=== PATIENT | male | born 1960 | race Caucasian/White ===

== ENCOUNTER 2024-08-03 09:37 | Emergency (ER) | payer OTHER, SELFPAY ==
[2024-08-03 09:51] VITALS: BP 139/85; PULSE 76; RESP 20; TEMP 36.6; O2SAT 98; BMI 28.1
--- NOTE | 2024-08-03 09:56 | DI.US.S_ITS ---
PROCEDURE: US SCROTUM INDICATIONS: LEFT GROIN PAIN TECHNIQUE: Real-time scanning was performed of the scrotum and testicles, with image documentation. Color and pulse Doppler interrogation was performed of both testicles. COMPARISON: None. FINDINGS: Right: Testicle is normal in size at 4.3 x 1.3 x 2.4 cm, and homogenous in echotexture. Epididymis is normal in overall size and morphology. No hydrocele or varicoceles. Overlying scrotal skin is normal in thickness. Left: Testicle is normal in size at 4.9 x 2 x 3.1 cm, and homogeneous in echotexture. Epididymis is normal in overall size and morphology. No hydrocele or varicoceles. Overlying scrotal skin is normal in thickness. Negative for left groin/inguinal hernia. Doppler: Color and pulse Doppler demonstrate normal and symmetric arterial flow in both testicles. IMPRESSION: Negative for left groin/inguinal hernia. 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 No acute testicular abnormality is seen. Dictated by: Des Gaines M.D. on 08/03/2024 at 10:09 Approved by: Des Gaines M.D. on 08/03/2024 at 10:11
--- NOTE | 2024-08-03 09:59 | PC.NURSE ---
Left sided groin pain starting at 8pm last night. Pt states pain radiates to testicles. Pt has not noticed any discoloration or redness (states he has not looked). Pt denies lower back pain, urinary frequency or urgency. Pt denies issues with peeing (i.e., burning or difficulty starting flow).
[2024-08-03 10:03] LABS: Appearance Urine UA CLEAR; Bilirubin Urine UA NEGATIVE (NEGATIVE); Color Urine UA YELLOW; Glucose Urine UA NEGATIVE (Negative); Ketones Urine UA NEGATIVE (NEGATIVE); Leukocyte Esterase Urine UA NEGATIVE (NEGATIVE); Nitrite Urine UA NEGATIVE (Negative); Occult Blood Urine UA NEGATIVE (Negative); Protein Urine UA NEGATIVE (Negative); Urobilinogen Urine UA 0.2 E.U./dL (0.2); pH Urine UA 7.5 (4.5-8.0)
[2024-08-03 10:11] LABS: Bacteria Urine None Seen; Culture Indicated Urine Cult Not Indicated; RBC Urine None Seen (0-5/HPF); Squamous Epithelial Cell Urine 0-1 /HPF (0-5/HPF); Urine Volume 10mL (spun); WBC Urine 0-1/HPF (0-5/HPF)
--- NOTE | 2024-08-03 10:49 | ED.MALEGU ---
HPI - Male Genitourinary General Chief complaint: Urogenital-Male Stated complaint: ABD pain/groin sharp Time Seen by Provider: 08/03/24 10:49 Source: patient, RN notes reviewed and old records reviewed Mode of arrival: Ambulatory Limitations: no limitations History of Present Illness HPI Narrative: 64-year-old male history of atrial fibrillation on DOAC with prior bilateral inguinal hernia surgery with a complaint of left-sided groin pain radiating to the left testicle describes it as sharp, sudden onset last night. Patient states started last night sort of abruptly sharp pain in the left lower inguinal region and radiates down towards the testicle. Patient states it does go up into his abdomen a little bit. He denies any back or flank pain. No fevers or chills. No nausea or vomiting. States he was had normal bowel movements. No dysuria urgency or frequency. Has not had similar symptoms in the past. Notes he had a hernia repair about 10 years ago. Patient states he had some Tylenol last night has not had anything for pain today. Notes he takes daily medication for atrial fibrillation, anticoagulant does not recall the name but is a DOAC, statin,. Patient states bilateral inguinal hernia repair. Denies any drug allergies. No regular tobacco. Related Data Previous Rx's Medication Instructions Recorded amoxicillin 875 mg-potassium 1 tab PO BID #20 tabs 08/03/24 clavulanate 125 mg tablet amoxicillin 875 mg-potassium 1 tab PO BID #20 tabs 08/03/24 clavulanate 125 mg tablet tramadol 50 mg tablet 50 mg PO Q6H PRN pain #10 tabs 08/03/24 Allergies Allergy/AdvReac Type Severity Reaction Status Date / Time No Known Drug Allergies Allergy Verified 08/03/24 11:18 Review of Systems Review of Systems ROS Unobtainable: All systems reviewed & are unremarkable except as noted in HPI and below Patient History Social History Smoking Status: Never smoker Smoking Status: Never smoker Exam Narrative Exam Narrative: GENERAL: Alert and oriented x three, mild distress HEENT: Head normocephalic, atraumatic, EOMI, pupils reactive, face symmetric, moist mucous membranes NECK: Supple, full range of motion CARDIOVASCULAR: Regular rate and rhythm without murmurs, rubs or gallops. RESPIRATORY: Breath sounds equal bilaterally, no wheezes rales or rhonchi. ABDOMEN: Soft, positive for left lower quadrant tenderness.. Normoactive bowel sounds all 4 quadrants. No guarding, positive for rebound. No rigidity, no mass, patient has a little bit of fullness in the left inguinal region but no clearly palpable hernia. I am not able to palpate a clear defect. He was nontender in the left scrotum. : normal external examination, no penile discharge or lesions, testicles non-tender, cremasteric reflex intact. EXTREMITIES: Normal range of motion, no clubbing or edema. Neurovascularly intact NEUROLOGICAL: Cranial nerves II through XII grossly intact. Moving all extremities SKIN: Warm, dry, no petechiae, no rashes or lesions. Initial Vital Signs Initial Vital Signs: Vital Signs Temperature 98 F 08/03/24 09:51 Pulse Rate 76 08/03/24 09:51 Respiratory Rate 20 08/03/24 09:51 Blood Pressure 139/85 08/03/24 09:51 Pulse Oximetry 98 08/03/24 09:51 Oxygen Delivery Method Room Air 08/03/24 09:51 Course Orders Ordered: ED Orders 08/03/24 09:56 US scrotum Stat 08/03/24 09:57 Urinalysis and Microscopic Stat 08/03/24 11:04 CBC Auto Diff [Complete Blood Count AUTO DIFF] Stat CMP [Comprehensive Metabolic Panel] Stat Lipase Stat 08/03/24 11:05 CT abdomen pelvis w con Stat Discontinued Medications Ketorolac Tromethamine (Ketorolac 30 Mg/Ml Vial) 15 mg IV NOW ONE Stop: 08/03/24 11:06 Last Admin: 08/03/24 11:18 Dose: 15 mg Documented By: GIULIA Vital Signs Vital signs: Vital Signs - 8 hr 08/03/24 09:51 08/03/24 12:14 Temperature 98 F 99.3 F Pulse Rate 76 87 Respiratory Rate 20 16 Blood Pressure 139/85 129/63 Pulse Oximetry 98 96 Oxygen Delivery Method Room Air Room Air MDM - Male Genitourinary Lab Data 08/03/24 11:04 08/03/24 11:04 Labs: Lab Results 08/03/24 08/03/24 Range/Units 09:57 11:04 WBC 11.8 H (4.5-11.0) X10^3/uL RBC 5.04 (4.5-5.9) X10^6/uL Hgb 14.7 (13.5-17.5) g/dL Hct 42.2 (41-53) % MCV 83.7 (80-100) fL MCH 29.1 (26-34) PG MCHC 34.7 (30-36) % RDW 14.1 (11.6-14.8) % Plt Count 212 (150-400) X10^3/uL Neut % (Auto) 78.3 H (50-75) % Lymph % (Auto) 13.1 L (25-40) % [place] % (Auto) 7.7 (3-14) % Eos % (Auto) 0.7 L (2-4) % Baso % (Auto) 0.2 (0-2) % Neut # (Auto) 9200 H (5058-5599) /uL Lymph # (Auto) 1500 (2636-1801) /uL [place] # (Auto) 900 (0-900) /uL Eos # (Auto) 100 (0-450) /uL Baso # (Auto) 0 (0-100) /uL Sodium 139 (137-145) mmol/L Potassium 3.4 (3.4-5.1) mmol/L Chloride 102 (98-107) mmol/L Carbon Dioxide 28 (22-32) mmol/L BUN 14 (9-20) mg/dL Creatinine 0.95 (0.66-1.25) mg/dL Estimated GFR > 60 (>60) mL/min BUN/Creatinine Ratio 14.7 (6-22) Glucose 107 H (70-99) mg/dL Calcium 9.3 (8.4-10.2) mg/dL Total Bilirubin 1.0 (0.2-1.3) mg/dL AST 31 (17-59) IU/L ALT 36 (<50) IU/L Alkaline Phosphatase 89 (38-126) U/L Total Protein 7.2 (6.3-8.2) g/dL Albumin 4.6 (3.5-5.0) g/dL Globulin 2.6 (1.7-4.1) g/dL Albumin/Globulin Ratio 1.8 (1.0-2.8) Lipase 99 (23-300) U/L Urine Color Yellow Urine Appearance Clear Urine pH 7.5 (4.5-8.0) Ur Specific [place] 1.010 (1.000-1.035) Urine Protein Negative (Negative) Urine Glucose (UA) Negative (Negative) g/dL Urine Ketones Negative (NEGATIVE) Urine Occult Blood Negative (Negative) Urine Nitrate Negative (Negative) Urine Bilirubin Negative (NEGATIVE) Urine Urobilinogen 0.2 (0.2) E.U./dL Ur Leukocyte Esterase Negative (NEGATIVE) Urine RBC None seen (0-5/HPF) Urine WBC 0-1/hpf (0-5/HPF) Ur Squamous Epith Cells 0-1 /hpf (0-5/HPF) Urine Bacteria None seen (None) Ur Culture Indicated? Cult not indicated Vol Urine Centrifuged 10ml (spun) MDM Narrative Medical decision making narrative: UA shows 1 white cell 1 squamous epithelial otherwise negative. Labs white count 11.8 hemoglobin of 14 platelets of 212. Chemistries Scrotal ultrasound negative for left groin/inguinal hernia, mild atrophy right testicle she was note a history. No acute testicular abnormality seen. CT abdomen pelvis moderate diverticulitis without findings of perforation or abscess, no significant inguinal hernia. Left hip arthroplasty hardware in place. 64-year-old male with left inguinal pain radiates down towards the testicle but he was also quite tender on left lower quadrant on examination. No easily palpable hernia is noted on exam diverticulitis I would put also and this potential differential. He does not have any flank pain no skin changes. He was nontender in the testicle itself. UA showed no obvious clear changes, prelim for scrotal ultrasound was negative for acute change detected scan over the area of pain with no hernia imaged. Notes right-sided testicular atrophy which patient states is known to him. Labs CT abdomen pelvis were obtained. Shows diverticulitis no signs of inguinal hernia or other hernias noted. Patient had Toradol. He feels much improved at this time. Discussed findings from today. Discussed return precautions all questions answered. Discharge Plan Departure Patient Disposition: Home Clinical Impression: Diverticulitis Instructions: DI for Diverticulitis Activity Restrictions/Additional Instructions: Your workup today does not show any inguinal hernias, you do have diverticulitis on the left side. Take oral antibiotics as completed. You can take ibuprofen up to 600 mg every 6 hours as needed for pain and/acetaminophen up to 1000 mg every 6 hours as needed. If inadequate for pain you can take narcotic pain medication 1-2 tablets every 6 hours as needed. This medication can make you sleepy do not drive, perform hazardous activities or make any major decisions while taking it. This medication will make you constipated please take a stool softener once to twice daily until stools are soft and regular. Prescription sent to [facility] in [place]. Please return or go to the closest ER for fevers, rapidly worsening pain, persistent vomiting, black or bloody stools or other new or concerning changes. Prescriptions: New amoxicillin-pot clavulanate 875-125 mg tablet 1 tab PO BID Qty: 20 0RF tramadol 50 mg tablet 50 mg PO Q6H PRN (Reason: pain) Qty: 10 0RF amoxicillin-pot clavulanate 875-125 mg tablet 1 tab PO BID Qty: 20 0RF Stand Alone Forms: Patient Portal/API/Survey
--- NOTE | 2024-08-03 11:05 | DI.CT.S_ITS ---
PROCEDURE: CT ABDOMEN PELVIS W CON INDICATIONS: LLQ, into inguinal also radiates to testicle TECHNIQUE: After the administration of intravenous contrast, axial sections acquired from the lung bases to the pubic symphysis. Coronal and sagittal reformats were performed. For radiation dose reduction, the following was used: automated exposure control, adjustment of mA and/or kV according to patient size. COMPARISON: [facility], , US SCROTUM, 08/03/2024, 10:28. FINDINGS: Image quality: There is artifact associated with the metallic hardware. Artifact from the metallic hardware is reduced by metal reconstruction algorithm. Lower Chest: No significant findings. ABDOMEN: Liver: No solid mass. Gallbladder: No radiopaque gallstones or wall thickening. Biliary ducts: No biliary dilation. Pancreas: No ductal dilation. Spleen: Size is within normal limits. Adrenal Glands: No adrenal nodules. Kidneys and Ureters: No hydronephrosis. No solid mass. No complex renal cystic lesion which requires follow up. Stomach and Bowel: Moderate wall thickening can be seen involving the distal descending colon and proximal sigmoid colon, with surrounding inflammatory change. Diverticula formation can be seen within this region. No findings of perforation or abscess can be seen. No significant free fluid can be seen. The more proximal colon is within normal limits. No dilated loops of small bowel are seen. A normal appendix is noted. Ventral Wall: No significant ventral hernia. Abdominal Nodes: No retroperitoneal or mesenteric adenopathy by size criteria. Vessels: Aorta and inferior vena cava are normal in size. PELVIS: Pelvic Organs: Unremarkable. Bladder: No bladder wall thickening, accounting for underdistention. Pelvic Nodes: No enlarged lymph nodes. Miscellaneous: No definite inguinal hernias are seen. Bones: No aggressive osseous abnormality. Age-appropriate bony degenerative changes are seen. Left hip arthroplasty hardware is seen. IMPRESSION: Moderate diverticulitis, without findings of perforation or abscess. No significant inguinal hernia is seen. Additional findings: Left hip arthroplasty hardware Dictated by: Des Gaines M.D. on 08/03/2024 at 10:44 Approved by: Des Gaines M.D. on 08/03/2024 at 10:48
[2024-08-03] MEDS: KETOROLAC 30 MG/ML VIAL 15 MG IV (11:18)
[2024-08-03 11:20] LABS: Add Manual Diff / Slide Review NO; Basophils Absolute Auto 0 /uL (0-100); Basophils Percent Auto 0.2 % (0-2); Eosinophils Absolute Auto 100 /uL (0-450); Eosinophils Percent Auto 0.7 % (2-4); Hematocrit 42.2 % (41-53); Hemoglobin 14.7 g/dL (13.5-17.5); Lymphocytes Absolute Auto 1500 /uL (1100-4500); Lymphocytes Percent Auto 13.1 % (25-40); Mean Corpuscular HGB Conc 34.7 % (30-36); Mean Corpuscular Hemoglobin 29.1 PG (26-34); Mean Corpuscular Volume 83.7 fL (80-100); Monocytes Absolute Auto 900 /uL (0-900); Monocytes Percent Auto 7.7 % (3-14); Neutrophils Absolute Auto 9200 /uL (1500-7000); Neutrophils Percent Auto 78.3 % (50-75); Platelet Count 212 X10^3/uL (150-400); Red Blood Cell Count 5.04 X10^6/uL (4.5-5.9); Red Cell Distribution Width 14.1 % (11.6-14.8); White Blood Cell Count 11.8 X10^3/uL (4.5-11.0)
[2024-08-03 11:31] LABS: Alanine Aminotransferase 36 IU/L (<50); Albumin 4.6 g/dL (3.5-5.0); Albumin Globulin Ratio 1.8 (1.0-2.8); Alkaline Phosphatase 89 U/L (38-126); Aspartate Aminotransferase 31 IU/L (17-59); BUN Creatinine Ratio 14.7 (6-22); Blood Urea Nitrogen 14 mg/dL (9-20); Calcium 9.3 mg/dL (8.4-10.2); Carbon Dioxide 28 mmol/L (22-32); Chloride 102 mmol/L (98-107); Estimated Glomerular Filt Rate > 60 mL/min (>60); Globulin 2.6 g/dL (1.7-4.1); Glucose 107 mg/dL (70-99); HEMOLYSIS < 15 (0-50); Lipase 99 U/L (23-300); Potassium 3.4 mmol/L (3.4-5.1); Sodium 139 mmol/L (137-145); Total Protein 7.2 g/dL (6.3-8.2)
[2024-08-03 12:14] VITALS: BP 129/63; PULSE 87; RESP 16; TEMP 37.4; O2SAT 96
--- NOTE | 2024-08-03 13:02 | PC.NURSE ---
Printed RX given to patient for patient for Tramadol & Augmentin, previous papers had a small name mispelled and patient could not fill, old rx shredded. New dc paper copies given to patient as well.
== END 2024-08-03 12:16 | disposition home or self-care (01) ==
PROVIDERS: Emergency Provider Emergency Medicine
DX: K57.92 Diverticulitis of intestine, part unspecified, without perforation or abscess without bleeding (principal)
CPT/HCPCS: 74177; 76870; 80053; 81001; 83690; 85025; 93975; 96374; 99283; 99284; J1885; Q9967

== ENCOUNTER 2024-08-04 03:10 | Inpatient (IN) | payer OTHER, SELFPAY ==
[2024-08-04] VITALS (27 sets, daily range): BP systolic 94–129; BP diastolic 53–82; PULSE 76–112; RESP 14–87; TEMP 36.5–39.8; O2SAT 87–97; BMI 28.1
--- NOTE | 2024-08-04 | PATH_ITS ---
[facility] Accession Number: [id number] No. of containers..01 Tissue . 01 Material submitted: . colon - COLON, SIGMOID, SEGMENTAL RESECTION . 01 Diagnosis: COLON, SIGMOID, SEGMENTAL RESECTION: 1. Segment of colon with perforation and serositis, consistent with perforated diverticulitis. 2. Negative for dysplasia or malignancy. 3. Thirteen reactive lymph nodes with no evidence of neoplasia. [facility] 08/08/2024 1441 Local . 01 Electronically signed: . Pankaj Ruby MD, Pathologist NPI- [id number] . 01 Gross description: . Received in formalin with two identifiers and sigmoid colon, is an unoriented segment of colon, 9.2 cm in length by 1.9 cm in diameter, with martinez serosa, creeping fat, and a defect with adjacent purulent material that measures 0.5 x 0.5 cm. The defect is located 0.6 cm from the nearest stapled margin which is inked blue. The opposite staple line is inked black, and the area of defect is inked orange. The lumen contains solidified fecal material and the mucosa is pink-martinez and velvety with normal appearing folds and no lesions identified. The garcia average 0.5 cm thick and the aforementioned defect is full thickness. Multiple diverticula are identified up to 1.0 cm in maximum depth filled with solidified fecal material. . Palpation reveals 13 martinez lymph node candidates ranging from 0.3 to 0.5 cm in greatest dimension. . Video Systems Engineer sections are submitted as follows: A1: Rep margins en face. A2: Area of perforation with perpendicular blue-inked staple margin. A3-A4: Diverticula A5: Unremarkable full-thickness sections. A6: Four intact lymph node candidates. A7: Five intact lymph node candidates. A8: Four intact lymph node candidates. ([id number]) /MRV 08/08/2024 1441 Local . 01 Pathologist provided ICD-10: K57.20 . 01 CPT . 893860 Specimen Comment: A courtesy copy of this report has been sent to [facility] Pathology Performed at: [address] [id number] MD Pankaj Ruby MD Phone: [phone]
[2024-08-04] MEDS: ONDANSETRON 4 MG/2 ML INJ IV ×2 (03:42→11:40)
--- NOTE | 2024-08-04 04:23 | ED_ITS ---
HPI - Nausea/Vomiting/Diarrhea General Chief complaint: Nausea/Vomiting/Diarrhea Stated complaint: Feeling worse since last here 08/03 nausea/vomiting Time Seen by Provider: 08/04/24 03:19 Source: patient Mode of arrival: Ambulatory History of Present Illness HPI Narrative: 64-year-old gentleman history of atrial fibrillation on anticoagulation high blood pressure dyslipidemia seen last evening for acute diverticulitis with without perforation given tramadol and Augmentin here sent home and this evening started to develop nonbilious, nonbloody, nausea, vomiting, but no diarrhea unable to hold down antibiotic and pain pill. He is visiting from [facility] nearby and will be returning back on Monday. Other than what is stated 14 point review of system is negative. Related Data Previous Rx's Medication Instructions Recorded amoxicillin 875 mg-potassium 1 tab PO BID #20 tabs 08/03/24 clavulanate 125 mg tablet amoxicillin 875 mg-potassium 1 tab PO BID #20 tabs 08/03/24 clavulanate 125 mg tablet amoxicillin 875 mg-potassium 1 tab PO BID #20 tabs 08/03/24 clavulanate 125 mg tablet tramadol 50 mg tablet 50 mg PO Q6H PRN pain #10 tabs 08/03/24 tramadol 50 mg tablet 50 mg PO Q6H PRN pain #10 tabs 08/03/24 Allergies Allergy/AdvReac Type Severity Reaction Status Date / Time No Known Drug Allergies Allergy Verified 08/03/24 11:18 Review of Systems Review of Systems ROS Unobtainable: All systems reviewed & are unremarkable except as noted in HPI and below Patient History Social History Smoking Status: Never smoker Smoking Status: Never smoker Exam Narrative Exam Narrative: GENERAL: [64] year old patient appears stated age. Well-developed patient, in mild distress. HEAD: Atraumatic. Normocephalic. EYES: Pupils equal round and reactive. Extraocular motions intact. No scleral icterus. No injection or drainage. ENT: Nose without bleeding, purulent drainage. Throat without erythema, tonsillar hypertrophy or exudate. Airway patent. NECK: Trachea midline. Non tender CARDIOVASCULAR: Regular rate and rhythm without murmurs, gallops, or rubs. RESPIRATORY: Clear to auscultation. Breath sounds equal bilaterally. No wheezes, rales, or rhonchi. GASTROINTESTINAL: Abdomen soft, LLQ TTP but no r/r/g, nondistended. EXTREMITIES: No edema or joint tenderness. BACK: Nontender without deformity or crepitance. No flank tenderness. NEURO: AOx3. SKIN: No rash or erythema of visible areas Initial Vital Signs Initial Vital Signs: Vital Signs Temperature 98.7 F 08/04/24 03:24 Pulse Rate 87 08/04/24 03:24 Respiratory Rate 87 H 08/04/24 03:24 Blood Pressure 129/60 08/04/24 03:24 Pulse Oximetry 93 08/04/24 03:24 Oxygen Delivery Method Room Air 08/04/24 03:24 Course Orders Ordered: Ondansetron HCl (Ondansetron 4 Mg/2 Ml Inj) 4 mg IV NOW PRN PRN Reason: Nausea And Vomiting Last Admin: 08/04/24 03:42 Dose: 4 mg Documented By: LUCY Ondansetron HCl (Ondansetron 4 Mg Odt) 4 mg PO NOW PRN PRN Reason: Nausea And Vomiting Vital Signs Vital signs: Vital Signs - 8 hr 08/04/24 03:24 Temperature 98.7 F Pulse Rate 87 Respiratory Rate 87 H Blood Pressure 129/60 Pulse Oximetry 93 Oxygen Delivery Method Room Air MDM - Nausea/Vomiting/Diarrhea MDM Narrative Medical decision making narrative: All lab work, vital signs, nurse triage note, medication list, previous ER visits and all imaging studies reviewed. Patient given lactated Ringer's 1 L bolus Cipro 400 mg IV, Flagyl 500 mg IV, Zofran 4 mg IV, Toradol 15 mg IV, and morphine 4 mg IV. differential diagnosis includes acute diverticulitis, Failed outpatient therapy, electrolyte derangement. Case discussed with Dr. Casillas hospitalist who has graciously accepted patient for inpatient admission in light of blood work with white count of 18.8 with left shift sodium 133 potassium 3.2 glucose 197. Discharge Plan Departure Patient Disposition: Admitted as Observation Clinical Impression: Diverticulitis Nausea & vomiting Qualifiers: Vomiting type: unspecified Qualified Code(s): R11.2 - Nausea with vomiting, unspecified Admit Date/Time: 08/04/24 05:48 Admit Provider: Reyes Lora
[2024-08-04] MEDS: LACTATED RINGERS 1,000 ML 1000 ML IV (04:33)
[2024-08-04] MEDS: KETOROLAC 30 MG/ML VIAL 15 MG IV (04:33)
[2024-08-04] MEDS: MORPHINE 4 MG/ML INJ IV (04:33)
[2024-08-04 05:09] LABS: Add Manual Diff / Slide Review NO; Basophils Absolute Auto 0 /uL (0-100); Basophils Percent Auto 0.1 % (0-2); Eosinophils Absolute Auto 0 /uL (0-450); Hematocrit 38.2 % (41-53); Hemoglobin 13.3 g/dL (13.5-17.5); Lymphocytes Absolute Auto 1200 /uL (1100-4500); Lymphocytes Percent Auto 6.3 % (25-40); Mean Corpuscular HGB Conc 34.8 % (30-36); Mean Corpuscular Hemoglobin 29.3 PG (26-34); Mean Corpuscular Volume 84.1 fL (80-100); Monocytes Absolute Auto 1100 /uL (0-900); Monocytes Percent Auto 6.1 % (3-14); Neutrophils Absolute Auto 16500 /uL (1500-7000); Neutrophils Percent Auto 87.5 % (50-75); Platelet Count 225 X10^3/uL (150-400); Red Blood Cell Count 4.54 X10^6/uL (4.5-5.9); Red Cell Distribution Width 13.8 % (11.6-14.8); White Blood Cell Count 18.8 X10^3/uL (4.5-11.0)
[2024-08-04 05:28] LABS: Alanine Aminotransferase 32 IU/L (<50); Albumin 4.1 g/dL (3.5-5.0); Albumin Globulin Ratio 1.5 (1.0-2.8); Alkaline Phosphatase 72 U/L (38-126); Aspartate Aminotransferase 26 IU/L (17-59); BUN Creatinine Ratio 18.1 (6-22); Blood Urea Nitrogen 21 mg/dL (9-20); Calcium 8.9 mg/dL (8.4-10.2); Carbon Dioxide 25 mmol/L (22-32); Chloride 98 mmol/L (98-107); Estimated Glomerular Filt Rate > 60 mL/min (>60); Globulin 2.7 g/dL (1.7-4.1); Glucose 197 mg/dL (70-99); HEMOLYSIS < 15 (0-50); Potassium 3.2 mmol/L (3.4-5.1); Sodium 133 mmol/L (137-145); Total Protein 6.8 g/dL (6.3-8.2)
[2024-08-04] MEDS: metroNIDAZOLE 500 MG/100 ML PIGGYBACK 100 MG IV (05:34)
[2024-08-04 05:56] LABS: Lactate (Lactic Acid) 2.1 mmol/L (0.7-2.1)
[2024-08-04 06:11] LABS: Procalcitonin 1.25 ng/mL (<0.5)
--- NOTE | 2024-08-04 06:14 | PM.HP.1 ---
History of Present Illness History of Present Illness Date Patient Seen: 08/04/24 Date of Onset of Symptoms: 08/02/24 Chief complaint: Feeling worse since last here 08/03 nausea/vomiting Narrative: The pt is a 64 yo who developed sudden onset of LLQ pain that started on Monday, 08/02 but got much worse yesterday 08/03 and came to the ER around 10 am for evaluation. He has a hx of inguinal hernia repair. He stated that the pain is in the groin and LLQ of the abd to the ER staff. The pt is currently on DOAC for his a-fib, He was seen in the ER on 08/03 early in the day and was sent home on Augmentin. Once home he feels his symptoms worsened, he started having severe nausea with several episodes of emesis with worsening pain so he came back to the ER last night for repeat evaluation. He is having nausea, chills, no BM, severe pain, worse with movement. [facility] Social History household members: spouse Smoking Status: Never smoker Meds Home Medications and Allergies Home Medications Medication Instructions Recorded Confirmed Type amlodipine 10 mg tablet 10 mg PO DAILY 08/04/24 08/04/24 History hydrochlorothiazide 12.5 mg tablet 12.5 mg PO DAILY 08/04/24 08/04/24 History metoprolol tartrate 25 mg tablet 12.5 mg PO BID 08/04/24 08/04/24 History ramipril 10 mg capsule 10 mg PO DAILY 08/04/24 08/04/24 History rivaroxaban 20 mg tablet 20 mg PO DAILY 08/04/24 08/04/24 History rosuvastatin 10 mg tablet 10 mg PO DAILY 08/04/24 08/04/24 History Allergies Allergy/AdvReac Type Severity Reaction Status Date / Time No Known Drug Allergies Allergy Verified 08/03/24 11:18 Exam Vital Signs (past 8 hours): - 08/04/24 03:21 08/04/24 03:21 08/04/24 03:24 Temperature 98.7 F Pulse Rate 91 H 87 Respiratory Rate 87 H Blood Pressure 129/60 129/60 Pulse Oximetry 93 93 Oxygen Delivery Method Room Air 08/04/24 03:30 08/04/24 05:00 08/04/24 05:00 Temperature Pulse Rate 87 82 Respiratory Rate 14 Blood Pressure 112/60 Pulse Oximetry 93 91 Oxygen Delivery Method Room Air Room Air 08/04/24 05:30 08/04/24 05:30 Temperature 98.3 F Pulse Rate 76 Respiratory Rate 16 Blood Pressure 106/59 L Pulse Oximetry 90 L Oxygen Delivery Method Room Air Oxygen Delivery Method Room Air Const General: cooperative and diaphoretic Orientation: alert and oriented x3 Resp Auscultation: clear to auscultation bilaterally Cardio Rate: regular rate Rhythm: regular rhythm GI Palpation: firm and tender Auscultation: absent bowel sounds Objective Labs 08/04/24 03:34 08/04/24 03:34 Labs: Laboratory Results - last 24 hr 08/04/24 08/04/24 03:34 05:27 WBC 18.8 H D RBC 4.54 Hgb 13.3 L Hct 38.2 L MCV 84.1 MCH 29.3 MCHC 34.8 RDW 13.8 Plt Count 225 Neut % (Auto) 87.5 H Lymph % (Auto) 6.3 L [place] % (Auto) 6.1 Eos % (Auto) 0.0 L Baso % (Auto) 0.1 Neut # (Auto) 37036 H Lymph # (Auto) 1200 [place] # (Auto) 1100 H Eos # (Auto) 0 Baso # (Auto) 0 Sodium 133 L Potassium 3.2 L Chloride 98 Carbon Dioxide 25 BUN 21 H Creatinine 1.16 Estimated GFR > 60 BUN/Creatinine Ratio 18.1 Glucose 197 H Lactate 2.1 Calcium 8.9 Total Bilirubin 1.0 AST 26 ALT 32 Alkaline Phosphatase 72 Total Protein 6.8 Albumin 4.1 Globulin 2.7 Albumin/Globulin Ratio 1.5 Assessment & Plan Assessment & Plan narrative: 1. Diverticulitis- failed outpatient treatment with augmentin in light of the N/V and worsening pain with increasing WBC. I have reviewed the patients labs showing a WBC of 18, Cr of 1.16 and K of 3.2. He recieved a single dose of CIpro + Flagyl in the ER but will start zosyn once admitted, antiemetics have been ordered, IV + PO pain meds. I have personnally reviewed the CT scan of the abd showing the Diverticultis from 08/03 but if clinically deteriorates would recommend repeating CT scan with possible general surgery consultation, I have discussed the symptoms, labs and imaging with Dr. Otoole the ER provider and agree with the decision for admission 2. Atrial Fibrillation - continue on home meds, including the [facility], pharmacy to review home meds. I, Dr. Reyes Lora in [place] has seen and evaluated the pt in [place], [place] with audio/video equipment of telemedicine to evaluate and assess the pt with the patients consent and nursing assistance Time-Based Coding :: [TOTAL MINUTES] spent with patient and on the chart (including review of chart, obtaining history, exam, reviewing outside data, placing orders, documenting exam and treatment plan, and counseling patient) on [DATE].
[2024-08-04] MEDS: CIPROFLOXACIN 400 MG/200 ML PIGGYBACK 200 MG IV (06:34)
[2024-08-04 07:13] LABS: Reflexed Lactate in 2 Hours Y
[2024-08-04 08:35] LABS: Lactate 2HR (Lactic Acid Rflx) 1.9 mmol/L (0.7-2.1)
--- NOTE | 2024-08-04 08:45 | CM.DANOTE ---
Initial DCP Assessment Note Pt is a 64 yo male, resident of [facility], arrives w/abd pain, admitted OBS by general surgery for monitoring of diverticulitis. IV abx, IVF, po pain meds. PCP: Dr Sutton (). Payer: Commercial Reviewed chart, patient lives independently w/sp in . Patient/sp were camping this weekend and meant to return home Monday. No barriers identified at this time to patient's safe discharge home w/family to assist; close outpatient f/u recommended. CM team will plan to follow clinical course closely in case any DC needs or concerns arise. AMERICA Couch Discharge Planning/Care Management CM Discharge Assessment Start: 08/04/24 05:56 Freq: Status: Active Protocol: Document 08/04/24 08:43 ZHAO (Rec: 08/04/24 08:45 ZHAO [id number]) Discharge Planning Assessment Assigned Boiler Washer AMERICA Mancia DPOA/Assigned Designee Name Margarita Luz Contact Information [phone] Advance Directives? No History Provided By Patient,Medical Record Has Patient been admitted in last 30 No days? Prior Living Arrangements House Household Members spouse Type of transporation used prior to Drives own vehicle admit Independent with ADL's Yes Is patient alert and oriented? Yes Barriers to Discharge No Discharge Plan Home Transportation Arrangement Spouse Referrals Initiated None needed
[2024-08-04] MEDS: SODIUM CHLORIDE 0.45% 1,000 ML 125 ML IV (09:46)
[2024-08-04] MEDS: ACETAMINOPHEN 325 MG TABLET 650 MG PO (09:51)
[2024-08-04] MEDS: KETOROLAC 30 MG/ML VIAL IV ×2 (11:39→23:04)
[2024-08-04] MEDS: PIPERACILLIN/TAZO 3.375 GM in SODIUM CHLORIDE 0.9% 100 ML IV ×2 (11:40→21:32)
--- NOTE | 2024-08-04 13:17 | DI.CT.S_ITS ---
PROCEDURE: CT ABDOMEN PELVIS W CON INDICATIONS: Perforated diverticulitis TECHNIQUE: After the administration of intravenous contrast, axial sections acquired from the lung bases to the pubic symphysis. Coronal and sagittal reformats were performed. For radiation dose reduction, the following was used: automated exposure control, adjustment of mA and/or kV according to patient size. COMPARISON: [facility], CT, CT ABDOMEN PELVIS W CON, 08/03/2024, 11:19. FINDINGS: Image quality: Diagnostic. Lower Chest: Bilateral basilar subsegmental atelectasis. Bilateral basilar subsegmental atelectasis. ABDOMEN: Liver: No solid mass. Gallbladder: No radiopaque gallstones or wall thickening. Biliary ducts: No biliary dilation. Pancreas: No ductal dilation. Spleen: Size is within normal limits. Adrenal Glands: No adrenal nodules. Kidneys and Ureters: No hydronephrosis. No solid mass. No complex renal cystic lesion which requires follow up. Stomach and Bowel: There is mild dilatation of multiple small bowel loops as well as the colon, without obstructive pattern seen. Diverticulosis again noted, with stable inflammatory changes in the region of the proximal sigmoid. There is new wall thickening of multiple small bowel loops in the left abdomen.. Peritoneum: There is new small to moderate amount of free intraperitoneal air. Ventral Wall: No significant ventral hernia. Abdominal Nodes: No retroperitoneal or mesenteric adenopathy by size criteria. Vessels: Aorta and inferior vena cava are normal in size. PELVIS: Pelvic Organs: Unremarkable. Bladder: No bladder wall thickening, accounting for underdistention. Pelvic Nodes: No enlarged lymph nodes. Miscellaneous: No inguinal hernias are seen. Bones: No aggressive osseous abnormality. IMPRESSION: 1. Small to moderate amount of free intraperitoneal air, consistent with open perforation in the greater peritoneal cavity. No signs of abscess. 2. Findings suggestive of mild degree of ileus, no signs of obstruction. Wall thickening of several small bowel loops in the left abdomen, likely reactive, can be reassessed on follow-up studies. Findings discussed with Dr. Trevino at 2:04 p.m. Dictated by: Peter Linder M.D. on 08/04/2024 at 13:53 Approved by: Peter Linder M.D. on 08/04/2024 at 14:04
[2024-08-04] MEDS: HYDROMORPHONE 0.5 MG INJ IV ×3 (13:25→22:10)
--- NOTE | 2024-08-04 13:42 | PC.NURSE ---
Addendum entered by Blanka Reece R.N. 08/04/24 18:04: 1720 Patient off unit via bed. CAR HEAD LINER INSTALLER aware of orders for potassium/fluid bolus. RN to administer medications in OR. kiln fireman Chetan made aware patient last fluid intake was 1500; RN to communicate with OR team. Orders received from MD Trevino to keep patient strict NPO. Patient transported with 4L O2. CAR HEAD LINER INSTALLER aware of patient Jehovah witness sikhism status. Addendum entered by Blanka Reece R.N. 08/04/24 14:37: 1430 MD and Surgeon at the bedside, updating patient on plan of care. Original Note: 1115 Report received from off going RN. Patient AAO x's 4, able to ROSAS. Complaining of pain to abdomen and nausea, will administer medication. at the bedside. Bed in lowest position and call light within reach. 1317 MD Trevino at the bedside, updating patient on plan of care. Patient to go to CT and PT/INR to be drawn. [address] via wheelchair.
[2024-08-04 13:55] LABS: INR 2.5 (0.9-1.3); Prothrombin Time 27.3 SECONDS (9.4-12.5)
[2024-08-04 13:57] LABS: PTT Partial Thromboplastin Tim 38 SECONDS (25.1-36.5)
[2024-08-04] MEDS: PROTHROMBIN CPLX(PCC)4FACT 3,000 UNIT in ISOOSMOTIC VEHICLE 0 ML 504 UNIT IV (14:27)
--- NOTE | 2024-08-04 14:30 | PM.CN.IH.1 ---
History of Present Illness Consult details Date Patient Seen: 08/04/24 Time Patient Seen: 14:30 Chief complaint: Feeling worse since last here 08/03 nausea/vomiting Narrative: Alex Luz is a 64 year old man who presented to the emergency room last night with left lower quadrant abdominal pain over the past few days. A CT scan last night showed sigmoid colon diverticulitis without evidence of perforation. He was admitted and started on IV antibiotics (he is currently on Zosyn). Then today about 2 hours ago he felt a pop and a sudden increase in severity of abdominal pain. A repeat CT scan showed locules of free air distant from the sigmoid colon. He has never been diagnosed with diverticulitis prior to yesterday. His only prior surgery is inguinal hernia repair. He takes Xarelto for atrial fibrillation. He did not take his Xarelto dose today or last night. He is visiting from [place]. Meds Home Medications and Allergies Home Medications Medication Instructions Recorded Confirmed Type amlodipine 10 mg tablet 10 mg PO DAILY 08/04/24 08/04/24 History hydrochlorothiazide 12.5 mg tablet 12.5 mg PO DAILY 08/04/24 08/04/24 History metoprolol tartrate 25 mg tablet 12.5 mg PO BID 08/04/24 08/04/24 History ramipril 10 mg capsule 10 mg PO DAILY 08/04/24 08/04/24 History rivaroxaban 20 mg tablet 20 mg PO DAILY 08/04/24 08/04/24 History rosuvastatin 10 mg tablet 10 mg PO DAILY 08/04/24 08/04/24 History Allergies Allergy/AdvReac Type Severity Reaction Status Date / Time No Known Drug Allergies Allergy Verified 08/03/24 11:18 Exam Vital Signs (past 8 hours): - 08/04/24 07:55 08/04/24 08:58 08/04/24 09:51 Temperature 97.7 F 99.4 F 100.2 F H Pulse Rate 88 Respiratory Rate 18 Blood Pressure 117/63 Pulse Oximetry 94 Oxygen Flow Rate 0 08/04/24 11:54 08/04/24 14:10 08/04/24 14:11 Temperature 99.4 F 98.7 F Pulse Rate 88 Respiratory Rate 20 Blood Pressure 120/65 Pulse Oximetry 88 L 93 Oxygen Flow Rate 4 Oxygen Delivery Method Nasal Cannula Oxygen Flow Rate 4 Narrative Exam Narrative: Abdomen is tender to percussion in the left lower quadrant There is no peritonitis outside of the left lower quadrant Objective Labs 08/04/24 03:34 08/04/24 03:34 Labs: Laboratory Results - last 24 hr 08/04/24 08/04/24 08/04/24 03:34 05:27 08:15 WBC 18.8 H D RBC 4.54 Hgb 13.3 L Hct 38.2 L MCV 84.1 MCH 29.3 MCHC 34.8 RDW 13.8 Plt Count 225 Neut % (Auto) 87.5 H Lymph % (Auto) 6.3 L [place] % (Auto) 6.1 Eos % (Auto) 0.0 L Baso % (Auto) 0.1 Neut # (Auto) 84857 H Lymph # (Auto) 1200 [place] # (Auto) 1100 H Eos # (Auto) 0 Baso # (Auto) 0 PT INR APTT Sodium 133 L Potassium 3.2 L Chloride 98 Carbon Dioxide 25 BUN 21 H Creatinine 1.16 Estimated GFR > 60 BUN/Creatinine Ratio 18.1 Glucose 197 H Lactate 2.1 1.9 Calcium 8.9 Total Bilirubin 1.0 AST 26 ALT 32 Alkaline Phosphatase 72 Total Protein 6.8 Albumin 4.1 Globulin 2.7 Albumin/Globulin Ratio 1.5 Procalcitonin 1.25 H 08/04/24 13:40 WBC RBC Hgb Hct MCV MCH MCHC RDW Plt Count Neut % (Auto) Lymph % (Auto) [place] % (Auto) Eos % (Auto) Baso % (Auto) Neut # (Auto) Lymph # (Auto) [place] # (Auto) Eos # (Auto) Baso # (Auto) PT 27.3 H INR 2.5 H APTT 38 H Sodium Potassium Chloride Carbon Dioxide BUN Creatinine Estimated GFR BUN/Creatinine Ratio Glucose Lactate Calcium Total Bilirubin AST ALT Alkaline Phosphatase Total Protein Albumin Globulin Albumin/Globulin Ratio Procalcitonin [facility] Social History household members: spouse Tobacco & Substance Use Smoking Status: Never smoker Assessment & Plan Assessment and plan (1) Perforation of sigmoid colon due to diverticulitis: Status: Acute Plan I explained to Alex that he has perforated diverticulitis. I explained that the standard approach is to proceed to the operating room for a sigmoid colon resection with an end-colostomy. This would be most likely a temporary colostomy and in 4-6 months could be reversed as long as he remains healthy. I discussed the various risks of surgery primarily bleeding and reactions to medications. Another option would be to continue to treat him with IV antibiotics. I explained that the main risk with this option would be failure and deterioration requiring us to go to the operating room after all. He was currently considering the 2 options and we will make a decision shortly. Time-Based Coding :: [TOTAL MINUTES] spent with patient and on the chart (including review of chart, obtaining history, exam, reviewing outside data, placing orders, documenting exam and treatment plan, and counseling patient) on [DATE]. PROFEE Charge Codes Inpatient or Observation consultation: [id number]
[2024-08-04] MEDS: SODIUM CHLORIDE 0.9% 840 ML IV (14:42)
--- NOTE | 2024-08-04 16:44 | P.PN_ITS ---
Subjective Subjective Date Patient Seen: 08/04/24 Interval history: Chief complaint: Abdominal pain fever chills rigors and hypoxia secondary to perforated diverticulitis with sepsis History of present illness: 64 yo who developed sudden onset of LLQ pain that started on Monday, 08/02 but got much worse yesterday 08/03 and came to the ER around 10 am for evaluation. He has a hx of inguinal hernia repair. He stated that the pain is in the groin and LLQ of the abd to the ER staff. The pt is currently on Xarelto for his a-fib, He was seen in the ER on 08/03 early in the day and was sent home on Augmentin. Once home he feels his symptoms worsened, he started having severe nausea with several episodes of emesis with worsening pain so he came back to the ER last night for repeat evaluation. Hospital course: 08/04: Patient deteriorated throughout the day has some popping sensation and severe pain in his abdomen followed by hypoxia rigors and tachycardia case was discussed with Dr. Vazquez and after reviewing with family and posterior elected to go to surgery. Kcentra administered intravenously to reverse anticoagulation from Xarelto Review of systems: No chest pains No paresthesia paresis No urinary symptoms Physical exam: Patient flushed diaphoretic in obvious distress Heart rate and rhythm irregular Lungs clear to auscultation but with diminished breath sounds Abdomen with peritoneal signs guarding and no bowel sounds Extremities no edema Objective data: White blood count 19 neutrophil 88% PT 27/INR 2.5 IMPRESSION: 1. Small to moderate amount of free intraperitoneal air, consistent with open perforation in the greater peritoneal cavity. No signs of abscess. 2. Findings suggestive of mild degree of ileus, no signs of obstruction. Wall thickening of several small bowel loops in the left abdomen, likely reactive, can be reassessed on follow-up studies. Assessment and plan: Sepsis with I apprehension of impending septic shock secondary to perforated diverticulitis of the descending colon as evidence by hypoxia tachycardia and rigors. * Intravenous antibiotics fluid support * Supplemental oxygen respiratory support for hypoxia * Surgery for resection and colostomy for source control * Reversal of anticoagulation of Xarelto with Kcentra * 4 K rider intravenous potassium supplement for potassium 3.2 per discussion with pharmacy * Lactic acid now and serial * Postoperative management in ICU Chronic atrial fibrillation * Anticoagulation reversed * Cardiac monitoring DVT prophylaxis with SCDs Full code blue I spent 75 minutes in evaluation and management of this patient Exam Vital Signs (past 8 hours): - 08/04/24 08:58 08/04/24 09:51 08/04/24 11:54 Temperature 99.4 F 100.2 F H 99.4 F Pulse Rate Respiratory Rate Blood Pressure Pulse Oximetry Oxygen Flow Rate 08/04/24 14:10 08/04/24 14:11 Temperature 98.7 F Pulse Rate 88 Respiratory Rate 20 Blood Pressure 120/65 Pulse Oximetry 88 L 93 Oxygen Flow Rate 4 Oxygen Delivery Method Nasal Cannula Oxygen Flow Rate 4 Objective Labs 08/04/24 03:34 08/04/24 03:34 Labs: Laboratory Results - last 24 hr 08/04/24 08/04/24 08/04/24 03:34 05:27 08:15 WBC 18.8 H D RBC 4.54 Hgb 13.3 L Hct 38.2 L MCV 84.1 MCH 29.3 MCHC 34.8 RDW 13.8 Plt Count 225 Neut % (Auto) 87.5 H Lymph % (Auto) 6.3 L [place] % (Auto) 6.1 Eos % (Auto) 0.0 L Baso % (Auto) 0.1 Neut # (Auto) 70341 H Lymph # (Auto) 1200 [place] # (Auto) 1100 H Eos # (Auto) 0 Baso # (Auto) 0 PT INR APTT Sodium 133 L Potassium 3.2 L Chloride 98 Carbon Dioxide 25 BUN 21 H Creatinine 1.16 Estimated GFR > 60 BUN/Creatinine Ratio 18.1 Glucose 197 H Lactate 2.1 1.9 Calcium 8.9 Total Bilirubin 1.0 AST 26 ALT 32 Alkaline Phosphatase 72 Total Protein 6.8 Albumin 4.1 Globulin 2.7 Albumin/Globulin Ratio 1.5 Procalcitonin 1.25 H 08/04/24 13:40 WBC RBC Hgb Hct MCV MCH MCHC RDW Plt Count Neut % (Auto) Lymph % (Auto) [place] % (Auto) Eos % (Auto) Baso % (Auto) Neut # (Auto) Lymph # (Auto) [place] # (Auto) Eos # (Auto) Baso # (Auto) PT 27.3 H INR 2.5 H APTT 38 H Sodium Potassium Chloride Carbon Dioxide BUN Creatinine Estimated GFR BUN/Creatinine Ratio Glucose Lactate Calcium Total Bilirubin AST ALT Alkaline Phosphatase Total Protein Albumin Globulin Albumin/Globulin Ratio Procalcitonin PFSH Social History household members: spouse Smoking Status: Never smoker Assessment & Plan Time-Based Coding :: [TOTAL MINUTES] spent with patient and on the chart (including review of chart, obtaining history, exam, reviewing outside data, placing orders, documenting exam and treatment plan, and counseling patient) on [DATE].
[2024-08-04] MEDS: POTASSIUM CHLORIDE IN WATER 10 MEQ/100 ML PIGGYBACK 100 MEQ IV ×4 (17:13→23:50)
--- NOTE | 2024-08-04 17:44 | PM.EVENT ---
Event Note Date Patient Seen: 08/04/24 Time Patient Seen: 17:44 Event Note (Rapid Response, Code, or fall): Patient requests no blood products under any circumstances even if his life required it. He understands there is a risk of bleeding with surgery.
[2024-08-04] MEDS: LACTATED RINGERS 1,000 ML 42 ML IV ×3 (18:03→19:45)
--- NOTE | 2024-08-04 18:14 | SUR.OPER ---
Supine on padded OR bed, head on pillow, arms secured on padded arm boards at <90 degrees abduction, legs uncrossed, safety belt at thigh, tape over blanket over lower legs.
[2024-08-04] MEDS: ACETAMINOPHEN IV 1,000 MG/100 ML VIAL 400 MG IV (18:22)
[2024-08-04] MEDS: BUPIVACAINE 0.5% W/ EPI (PF) 30 ML VIAL INJ (18:23)
[2024-08-04] MEDS: BUPIVACAINE LIPOSOME 266 MG/20 ML VIAL INJ (19:20)
--- NOTE | 2024-08-04 20:28 | P.OP_ITS ---
Operative Date/Time/Diagnoses Date of procedure: 08/04/24 Time of procedure: 20:28 Pre-op diagnosis: Perforated sigmoid diverticulitis Post-op diagnosis: same Procedure & Clinicians Procedure: Exploratory laparotomy Sigmoid colectomy End colostomy Same procedure as scheduled: Yes Surgeon: Benitez Vazquez Click Yes if Unassisted: Yes Anesthesia Type: General Operative Notes Findings: Perforation of the proximal sigmoid colon with feculent peritonitis Estimated Blood Loss (mL): 40 Procedure in detail: The patient is a 64-year-old man who presented with perforated sigmoid diverticulitis. Initially his vital signs were stable and we discussed operative management versus antibiotics alone however he developed tachycardia and hypoxia along with increasing abdominal pain and the decision was made to proceed to surgery. The patient was already on scheduled Zosyn. The patient was brought to the operating room, placed on the table in the supine position and general e ndotracheal anesthesia was induced. A Razo catheter was placed. The abdomen was prepped and draped in the usual fashion. A midline incision was created from just above the umbilicus to the pubis. The abdomen was entered and feculent peritonitis was encountered. The pool sucker was used to drain the murky fluid. The Bookwalter retractor was placed. The cecum and small bowel were quite dilated. The small bowel was packed into the upper abdomen. The perforation was noted along the anti mesenteric aspect of the colon near the junction between the descending colon and sigmoid colon. The sigmoid colon was medialized by dividing the lateral attachments along the white line of Toldt. The mesentery was reflected medially. The planes were well preserved consistent with the rather acute presentation. Once the sigmoid was medialized we divided the distal sigmoid colon with a single firing of the linear cutting stapler with a blue load. We took down the mesentery with the LigaSure back to the proximal sigmoid colon at the level of the perforation. We then divided the colon just above the perforation. The specimen was approximately 12 cm long. We then continued to mobilize the descending colon medially to gain mobility for the colostomy. Finally we removed all of the laps from the abdomen and irrigated the abdomen with at least 3 L of warm saline until all the irrigant returned clear. We then created a colostomy in the left lower quadrant by dividing the abdominal wall through the left rectus muscle. The stapled end of the colon was brought out through the colostomy wound. We then returned to the midline wound and closed with a running 0 PDS suture supported with multiple interrupted 0 Vicryl internal retention sutures. Additional Exparel was injected into the abdominal wall. We then irrigated the midline wound with sterile saline and closed with skin luanne. We covered the midline wound with a blue towel and proceeded to mature the colostomy with multiple interrupted 3-0 Monocryl sutures. A colostomy appliance was placed over the colostomy. The patient was awakened and brought to recovery room. EBL: 40 mL Specimen: Sigmoid colon to path Complications: none Post-operative Condition: stable Disposition: PACU
[2024-08-04] MEDS: MEPERIDINE 50 MG/ML INJ 12.5 MG IV (20:32)
[2024-08-04] MEDS: SODIUM CHLORIDE 0.9% 1,000 ML 1000 ML IV (20:50)
[2024-08-05] VITALS (23 sets, daily range): BP systolic 97–124; BP diastolic 55–76; PULSE 85–140; RESP 0–22; TEMP 36.3–36.9; O2SAT 91–95
[2024-08-05] MEDS: HYDROMORPHONE 0.5 MG INJ IV ×5 (01:19→18:42)
[2024-08-05] MEDS: PIPERACILLIN/TAZO 3.375 GM in SODIUM CHLORIDE 0.9% 100 ML IV ×3 (04:40→20:33)
--- NOTE | 2024-08-05 05:19 | PC.NURSE ---
veterinary hospital attendant RN note pt arrived from PACU A&Ox4, tired, c/o abd/incisional pain, prn analgesics with relief, VSS, afebrile, lungs clear, pt's CPAP set up by RT with bleed in O2 to keep O2 sats >92%, abd round distended, tender to touch, absent BS, midline incision covered with aquacel with small spots of shadowing, L side colostomy intact, stoma warm and beefy red, scan serosang output, catheter draining clear yellow urine, periph IV sites x2 patent, IV fluids, abx and K+ replacement as ordered, call higgins within reach, care continued
[2024-08-05 05:23] LABS: Add Manual Diff / Slide Review NO; Basophils Absolute Auto 0 /uL (0-100); Basophils Percent Auto 0.1 % (0-2); Eosinophils Absolute Auto 0 /uL (0-450); Hematocrit 35.3 % (41-53); Hemoglobin 12.5 g/dL (13.5-17.5); Lymphocytes Absolute Auto 400 /uL (1100-4500); Lymphocytes Percent Auto 3.2 % (25-40); Mean Corpuscular HGB Conc 35.5 % (30-36); Mean Corpuscular Hemoglobin 29.8 PG (26-34); Mean Corpuscular Volume 84.1 fL (80-100); Monocytes Absolute Auto 400 /uL (0-900); Monocytes Percent Auto 3.2 % (3-14); Neutrophils Absolute Auto 10300 /uL (1500-7000); Neutrophils Percent Auto 93.5 % (50-75); Platelet Count 179 X10^3/uL (150-400); Red Cell Distribution Width 14.2 % (11.6-14.8)
--- NOTE | 2024-08-05 05:25 | PC.NURSE ---
provided info for pt's insurance, (claim #[id number] [employer]) she states they will be contacting MDs for further information for coverage/paperwork
[2024-08-05 05:37] LABS: BUN Creatinine Ratio 14.4 (6-22); Blood Urea Nitrogen 13 mg/dL (9-20); Calcium 7.9 mg/dL (8.4-10.2); Carbon Dioxide 25 mmol/L (22-32); Chloride 103 mmol/L (98-107); Estimated Glomerular Filt Rate > 60 mL/min (>60); Glucose 177 mg/dL (70-99); HEMOLYSIS < 15 (0-50); Potassium 4.2 mmol/L (3.4-5.1); Sodium 134 mmol/L (137-145)
--- NOTE | 2024-08-05 06:38 | PC.NURSE ---
AM phone call received from [employer], regarding pt's status. They are unable to transfer him back to [place] today due to it being a holiday today. VS and labs provided to major case detective, please call for any other questions or updates. Case #[id number], Phone:
--- NOTE | 2024-08-05 07:41 | P.PN_ITS ---
Subjective Subjective Date Patient Seen: 08/05/24 Interval history: Chief complaint: Abdominal pain fever chills rigors and hypoxia secondary to perforated diverticulitis with sepsis History of present illness: 64 yo who developed sudden onset of LLQ pain that started on Monday, 08/02 but got much worse yesterday 08/03 and came to the ER around 10 am for evaluation. He has a hx of inguinal hernia repair. He stated that the pain is in the groin and LLQ of the abd to the ER staff. The pt is currently on Xarelto for his a-fib, He was seen in the ER on 08/03 early in the day and was sent home on Augmentin. Once home he feels his symptoms worsened, he started having severe nausea with several episodes of emesis with worsening pain so he came back to the ER last night for repeat evaluation. Hospital course: 08/04: Patient deteriorated throughout the day has some popping sensation and severe pain in his abdomen followed by hypoxia rigors and tachycardia case was discussed with Dr. Vazquez and after reviewing with family and posterior elected to go to surgery. 08/05: Postoperative day 1 patient is doing much better comfortable on nasal cannula oxygen small amount of gas coming from the ostomy Review of systems: No chest pains No paresthesia paresis No urinary symptoms Physical exam: Patient flushed diaphoretic in obvious distress Heart rate and rhythm irregular Lungs clear to auscultation but with diminished breath sounds No bowel sounds Extremities no edema Objective data: See bottom of the note Assessment and plan: Sepsis secondary to perforated diverticulitis of the descending colon as evidence by hypoxia tachycardia and rigors improved after laparotomy, colectomy and colostomy. * Intravenous antibiotics fluid support * Supplemental oxygen respiratory support for hypoxia * Status Surgery for resection and colostomy with with good source control 08/06 * Reversal of anticoagulation of Xarelto with Kcentra * resume his Xarelto when no further surgery anticipated * Postoperative management in ICU de-escalated to floor status Chronic atrial fibrillation * Anticoagulation reversed * Cardiac monitoring DVT prophylaxis with SCDs Full code jimmy I spent 35 minutes in evaluation and management of this patient Exam Vital Signs (past 8 hours): - 08/05/24 00:00 08/05/24 00:00 08/05/24 00:30 Temperature Pulse Rate 99 H Respiratory Rate 14 Blood Pressure 110/70 110/69 Pulse Oximetry 94 Oxygen Flow Rate 08/05/24 00:30 08/05/24 01:00 08/05/24 01:00 Temperature 98.3 F Pulse Rate 95 H 95 H 95 H Respiratory Rate 13 15 15 Blood Pressure 108/69 Pulse Oximetry 93 93 93 Oxygen Flow Rate 8 08/05/24 01:00 08/05/24 01:30 08/05/24 01:30 Temperature Pulse Rate 92 H Respiratory Rate 14 Blood Pressure 108/69 108/67 Pulse Oximetry 91 Oxygen Flow Rate 08/05/24 02:00 08/05/24 02:00 08/05/24 02:30 Temperature Pulse Rate 89 Respiratory Rate 22 Blood Pressure 104/67 98/64 Pulse Oximetry 92 Oxygen Flow Rate 08/05/24 02:30 08/05/24 03:00 08/05/24 03:00 Temperature Pulse Rate 86 89 Respiratory Rate 20 0 L Blood Pressure 107/71 Pulse Oximetry 91 93 Oxygen Flow Rate 08/05/24 03:30 08/05/24 04:00 08/05/24 04:00 Temperature Pulse Rate 85 87 Respiratory Rate 12 17 Blood Pressure 111/76 Pulse Oximetry 93 94 Oxygen Flow Rate 08/05/24 04:30 08/05/24 05:00 08/05/24 05:00 Temperature Pulse Rate 90 87 Respiratory Rate 18 15 Blood Pressure 106/65 Pulse Oximetry 93 92 Oxygen Flow Rate 08/05/24 05:30 08/05/24 06:00 08/05/24 06:00 Temperature Pulse Rate 91 H 89 Respiratory Rate 12 13 Blood Pressure 103/57 L Pulse Oximetry 93 92 Oxygen Flow Rate 08/05/24 06:00 Temperature 98.5 F Pulse Rate 89 Respiratory Rate 13 Blood Pressure 103/57 L Pulse Oximetry 92 Oxygen Flow Rate 8 Oxygen Delivery Method CPAP,Blow By Oxygen Flow Rate 8 Objective Labs 08/06/24 11:20 08/06/24 11:20 Labs: Laboratory Results - last 24 hr 08/04/24 08/04/24 08/04/24 08:15 13:40 17:20 WBC RBC Hgb Hct MCV MCH MCHC RDW Plt Count Neut % (Auto) Lymph % (Auto) [place] % (Auto) Eos % (Auto) Baso % (Auto) Neut # (Auto) Lymph # (Auto) [place] # (Auto) Eos # (Auto) Baso # (Auto) PT 27.3 H INR 2.5 H APTT 38 H Sodium Potassium Chloride Carbon Dioxide BUN Creatinine Estimated GFR BUN/Creatinine Ratio Glucose Lactate 1.9 2.0 Calcium 08/05/24 04:39 WBC 11.0 RBC 4.20 L Hgb 12.5 L Hct 35.3 L MCV 84.1 MCH 29.8 MCHC 35.5 RDW 14.2 Plt Count 179 Neut % (Auto) 93.5 H Lymph % (Auto) 3.2 L [place] % (Auto) 3.2 Eos % (Auto) 0.0 L Baso % (Auto) 0.1 Neut # (Auto) 87942 H Lymph # (Auto) 400 L [place] # (Auto) 400 Eos # (Auto) 0 Baso # (Auto) 0 PT INR APTT Sodium 134 L Potassium 4.2 Chloride 103 Carbon Dioxide 25 BUN 13 Creatinine 0.90 Estimated GFR > 60 BUN/Creatinine Ratio 14.4 Glucose 177 H Lactate Calcium 7.9 L PFSH Social History household members: spouse Smoking Status: Never smoker Assessment & Plan Time-Based Coding :: [TOTAL MINUTES] spent with patient and on the chart (including review of chart, obtaining history, exam, reviewing outside data, placing orders, documenting exam and treatment plan, and counseling patient) on [DATE].
[2024-08-05] MEDS: SODIUM CHLORIDE 0.45% 1,000 ML 125 ML IV (07:53)
[2024-08-05] MEDS: BENZOCAINE/MENTHOL 1 LOZ PKT 1 EACH PO (09:32)
[2024-08-05] MEDS: SODIUM CHLORIDE 0.9% FLUSH 10 ML IV ×2 (09:32→20:34)
--- NOTE | 2024-08-05 10:00 | PC.NURSE ---
Addendum entered by Nahomy Dominguez R.N. 08/05/24 13:17: 13:00 Pt ambulated in halls with nursing staff FWW and gaitbelt, denies pain with ambulation. Oxygenation 95% on RA. Up to chair following ambulation, 94% on RA. Care ongoing. Addendum entered by Nahomy Dominguez R.N. 08/05/24 12:07: 12:00 HR consistently in sustained 120s-150s Afib RVR despite PO 12.5mg PO metoprolol (home dose). Provider notified. New orders received. Original Note: Day shift: Pt A&Ox4, vitals WDL. Using IS after RT teaching. Pt up to chair, SBA. Urinary catheter removed, scant bloody discharge at removal. BP 124/75 while sitting, denies SOB dizziness. 3L NC 94%. Family at bedside. Care ongoing.
[2024-08-05] MEDS: HYDROCODONE/ACET 5/325 TABLET 1 TAB PO ×2 (10:25→15:50)
[2024-08-05] MEDS: KETOROLAC 30 MG/ML VIAL IV ×3 (10:26→23:46)
[2024-08-05] MEDS: METOPROLOL IR 25 MG TABLET 12.5 MG PO ×2 (10:57→20:34)
[2024-08-05] MEDS: METOPROLOL TARTRATE 5 MG/5 ML INJ IV ×2 (12:15→16:38)
--- NOTE | 2024-08-05 12:37 | PM.PN.IH.1 ---
Subjective Subjective Date Patient Seen: 08/05/24 Time Patient Seen: 12:37 Interval history: Feeling ?no worse? than prior to surgery The pain is now more incisional in nature Exam Vital Signs (past 8 hours): - 08/05/24 05:00 08/05/24 05:00 08/05/24 05:30 Temperature Pulse Rate 87 91 H Respiratory Rate 15 12 Blood Pressure 106/65 Pulse Oximetry 92 93 Oxygen Delivery Method Oxygen Flow Rate 08/05/24 06:00 08/05/24 06:00 08/05/24 06:00 Temperature 98.5 F Pulse Rate 89 89 Respiratory Rate 13 13 Blood Pressure 103/57 L 103/57 L Pulse Oximetry 92 92 Oxygen Delivery Method Oxygen Flow Rate 8 08/05/24 07:00 08/05/24 08:00 08/05/24 08:00 Temperature Pulse Rate 93 H 100 H Respiratory Rate 18 18 Blood Pressure 111/69 103/67 Pulse Oximetry 93 92 Oxygen Delivery Method CPAP Oxygen Flow Rate 8 8 08/05/24 09:15 08/05/24 10:00 Temperature Pulse Rate 94 H 121 H Respiratory Rate 20 18 Blood Pressure 118/72 Pulse Oximetry 92 94 Oxygen Delivery Method Nasal Cannula Oxygen Flow Rate 3 Oxygen Delivery Method Nasal Cannula Oxygen Flow Rate 3 Narrative Exam Narrative: Midline dressings intact Colostomy is pink and perfused with minimal output Objective Labs 08/05/24 04:39 08/05/24 04:39 Labs: Laboratory Results - last 24 hr 08/04/24 08/04/24 08/05/24 13:40 17:20 04:39 WBC 11.0 RBC 4.20 L Hgb 12.5 L Hct 35.3 L MCV 84.1 MCH 29.8 MCHC 35.5 RDW 14.2 Plt Count 179 Neut % (Auto) 93.5 H Lymph % (Auto) 3.2 L [place] % (Auto) 3.2 Eos % (Auto) 0.0 L Baso % (Auto) 0.1 Neut # (Auto) 95144 H Lymph # (Auto) 400 L [place] # (Auto) 400 Eos # (Auto) 0 Baso # (Auto) 0 PT 27.3 H INR 2.5 H APTT 38 H Sodium 134 L Potassium 4.2 Chloride 103 Carbon Dioxide 25 BUN 13 Creatinine 0.90 Estimated GFR > 60 BUN/Creatinine Ratio 14.4 Glucose 177 H Lactate 2.0 Calcium 7.9 L PFSH Social History household members: spouse Smoking Status: Never smoker Assessment & Plan Assessment and plan (1) Perforation of sigmoid colon due to diverticulitis: Status: Acute Plan Doing well postop day 1 following open sigmoid colon resection with end colostomy. DC Razo Clear liquid diet Mobilize We will start Lovenox for DVT prophylaxis We will continue IV antibiotics until he has 24 hours of normal vital signs Time-Based Coding :: [TOTAL MINUTES] spent with patient and on the chart (including review of chart, obtaining history, exam, reviewing outside data, placing orders, documenting exam and treatment plan, and counseling patient) on [DATE]. PROFEE Assisted Living Director Document charge(s): No
--- NOTE | 2024-08-05 13:18 | DIET.CONS2 ---
Dietary Inpatient Consultation Note Admission Date: 08/04/2024 05:48 64y M referred to nutrition for colostomy MNT teaching. Pt s/p end colostomy with washout due to perforated diverticulitis. Pt very motivated, desires to walk halls today. Feeling anxious about caring for colostomy. Nicole, ostomy nurse will be onsite this afternoon for instruction. Provided handout on Nutrition for New Colostomy and educated pt: 1. clear liquid --> full liquid diet as tolerated. 2. sip slowly watching for s/sx belching, stomach pressure 3. Focus on increased protein needs for healing once on full liquid --> soft diet 4. Recc soft foods on d/c, small bites, small frequent meals, chewing thoroughly 5. Avoid high fiber foods which could block stoma Handout reinforces MNT including strategies to manage increased/decreased output. Diet: 08/05/24 Breakfast Clear Liquid Diet Diet Modifications: Electronically Signed by: Marry Lindsey 08/05/24 13:18 Clinical Dietitian [address] [id number]
--- NOTE | 2024-08-05 13:23 | CM.DPC ---
DCP Cont: Per MD and Surgeon, pt tolerated procedure well and plan to advance diet to clear liquids today and d/c ahumada cath and ambulate. Per RN, was able to discontinue ahumada cath this morning and get pt to bedside chair without much assist and likely no PT orders needed at this time. SW met bedside with pt and spouse and they confirm they were down visiting friends with their camper and truck and plan is for friends to help drive truck and trailer back up to [facility] and spouse will go with them likely later today or tomorrow and then come back to provide transport home when pt medically stable to discharge. They confirm that pt has two insurances and they have notified both and AD Counselors aware and clinicals have been requested and faxed. Pt and spouse preference is to d/c back home to [place] at discharge and currently no further needs identified at this time other than pt asking for Excuse for Work letter today for his boss. Excuse for Work letter provided to patient for his Employer. AMERICA Metz
[2024-08-05] MEDS: ENOXAPARIN 40 MG/0.4 ML SYRINGE SUBCUT (15:48)
[2024-08-05] MEDS: MAGNESIUM SULFATE 2 GM/50 ML PIGGYBACK IV (16:38)
[2024-08-05] MEDS: SODIUM CHLORIDE 0.45% 1,000 ML 75 ML IV (19:42)
[2024-08-05] MEDS: TRAZODONE 50 MG TABLET PO (20:34)
[2024-08-05] MEDS: SENNOSIDES 8.6 MG TABLET 17.2 MG PO (20:34)
[2024-08-06] VITALS (7 sets, daily range): BP systolic 105–146; BP diastolic 67–78; PULSE 93–99; RESP 17–21; TEMP 36.4–36.8; O2SAT 90–94
[2024-08-06] MEDS: HYDROMORPHONE 0.5 MG INJ IV ×5 (03:44→20:39)
[2024-08-06] MEDS: PIPERACILLIN/TAZO 3.375 GM in SODIUM CHLORIDE 0.9% 100 ML IV ×3 (03:44→20:38)
[2024-08-06] MEDS: PANTOPRAZOLE DR 20 MG TABLET PO (07:45)
[2024-08-06] MEDS: SODIUM CHLORIDE 0.9% FLUSH 10 ML IV ×2 (08:58→20:40)
[2024-08-06] MEDS: ENOXAPARIN 40 MG/0.4 ML SYRINGE SUBCUT (08:58)
[2024-08-06] MEDS: METOPROLOL IR 25 MG TABLET 12.5 MG PO ×2 (08:58→20:39)
[2024-08-06] MEDS: SODIUM CHLORIDE 0.45% 1,000 ML 75 ML IV ×2 (08:59→22:57)
--- NOTE | 2024-08-06 09:53 | DI.RAD.S_ITS ---
PROCEDURE: XR CHEST 1V INDICATIONS: possible ileus TECHNIQUE: One view of the chest was acquired. COMPARISON: [facility], CT, CT ABDOMEN PELVIS W CON, 08/03/2024, 11:19. [facility], CT, CT ABDOMEN PELVIS W CON, 08/04/2024, 13:39. FINDINGS: Surgical changes and devices: None. Lungs and pleura: Bibasilar streaky opacification. Low lung volumes. No pleural effusions or pneumothorax. Mediastinum: Mediastinal contours appear normal. Heart size is normal. Bones and chest wall: No suspicious bony lesions. Overlying soft tissues appear unremarkable. Re-identified pneumoperitoneum. IMPRESSION: 1. Aspiration pneumonitis versus pneumonia. 2. Re-identified pneumoperitoneum. Dictated by: Elijah Joseph M.D. on 08/06/2024 at 10:28 Approved by: Elijah Joseph M.D. on 08/06/2024 at 10:34
--- NOTE | 2024-08-06 09:54 | DI.RAD.S_ITS ---
PROCEDURE: XR KUB INDICATIONS: possible ileus TECHNIQUE: One view of the abdomen acquired. COMPARISON: None. FINDINGS: Surgical changes and devices: Multiple skin luanne projecting over the midline of the pelvis. Partially visualized right hip arthroplasty. Bowel: Bowel gas pattern is nonspecific with gaseous distention of multiple loops of small bowel. Soft tissues: No suspicious abdominal calcifications. Visualized solid organ contours appear normal in size. Bones: No suspicious bony lesions. IMPRESSION: Nonspecific bowel gas pattern without definite evidence of obstruction. Gaseous distention of multiple loops of small bowel which could represent low-grade obstruction or ileus. If patient's symptoms persist or worsen, then repeat plain radiographs or CT scan is warranted for further evaluation. Dictated by: Dian Donahue MD, PhD on 08/06/2024 at 10:30 Approved by: Dian Donahue MD, PhD on 08/06/2024 at 10:31
[2024-08-06] MEDS: ONDANSETRON 4 MG/2 ML INJ IV (10:13)
[2024-08-06 11:43] LABS: Add Manual Diff / Slide Review NO; Basophils Absolute Auto 0 /uL (0-100); Basophils Percent Auto 0.2 % (0-2); Eosinophils Absolute Auto 0 /uL (0-450); Eosinophils Percent Auto 0.2 % (2-4); Hematocrit 35.5 % (41-53); Hemoglobin 12.1 g/dL (13.5-17.5); Lymphocytes Absolute Auto 900 /uL (1100-4500); Lymphocytes Percent Auto 6.2 % (25-40); Mean Corpuscular Volume 85.5 fL (80-100); Monocytes Absolute Auto 700 /uL (0-900); Monocytes Percent Auto 4.9 % (3-14); Neutrophils Absolute Auto 12900 /uL (1500-7000); Neutrophils Percent Auto 88.5 % (50-75); Platelet Count 260 X10^3/uL (150-400); Red Blood Cell Count 4.16 X10^6/uL (4.5-5.9); White Blood Cell Count 14.6 X10^3/uL (4.5-11.0)
[2024-08-06] MEDS: KETOROLAC 30 MG/ML VIAL IV ×2 (11:47→18:28)
[2024-08-06 11:49] LABS: Alanine Aminotransferase 26 IU/L (<50); Albumin 3.5 g/dL (3.5-5.0); Albumin Globulin Ratio 1.1 (1.0-2.8); Alkaline Phosphatase 71 U/L (38-126); Aspartate Aminotransferase 25 IU/L (17-59); BUN Creatinine Ratio 18.6 (6-22); Bilirubin Total 0.6 mg/dL (0.2-1.3); Blood Urea Nitrogen 19 mg/dL (9-20); Calcium 8.4 mg/dL (8.4-10.2); Carbon Dioxide 27 mmol/L (22-32); Chloride 102 mmol/L (98-107); Estimated Glomerular Filt Rate > 60 mL/min (>60); Globulin 3.2 g/dL (1.7-4.1); Glucose 119 mg/dL (70-99); HEMOLYSIS < 15 (0-50); Potassium 4.1 mmol/L (3.4-5.1); Sodium 138 mmol/L (137-145); Total Protein 6.7 g/dL (6.3-8.2)
[2024-08-06] MEDS: diazePAM 10 MG/2 ML SYRINGE 5 MG IV (11:54)
--- NOTE | 2024-08-06 13:55 | P.PN_ITS ---
Subjective Subjective Date Patient Seen: 08/06/24 Interval history: Alex has had increased nausea and distention today. No appreciable colostomy output. He has not vomited. Exam Vital Signs (past 8 hours): - 08/06/24 07:30 08/06/24 08:00 08/06/24 13:10 Temperature 97.9 F Pulse Rate 93 H 98 H Respiratory Rate 20 21 Blood Pressure 125/76 105/69 Pulse Oximetry 90 L 94 Oxygen Flow Rate 2 08/06/24 13:32 Temperature 98.2 F Pulse Rate Respiratory Rate Blood Pressure Pulse Oximetry Oxygen Flow Rate Oxygen Delivery Method Nasal Cannula,CPAP Oxygen Flow Rate 2 Narrative Exam Narrative: Abdomen is distended Colostomy is red and well perfused Objective Labs 08/06/24 11:20 08/06/24 11:20 Labs: Laboratory Results - last 24 hr 08/06/24 11:20 WBC 14.6 H RBC 4.16 L Hgb 12.1 L Hct 35.5 L MCV 85.5 MCH 29.0 MCHC 34.0 RDW 14.0 Plt Count 260 Neut % (Auto) 88.5 H Lymph % (Auto) 6.2 L [place] % (Auto) 4.9 Eos % (Auto) 0.2 L Baso % (Auto) 0.2 Neut # (Auto) 01715 H Lymph # (Auto) 900 L [place] # (Auto) 700 Eos # (Auto) 0 Baso # (Auto) 0 Sodium 138 Potassium 4.1 Chloride 102 Carbon Dioxide 27 BUN 19 Creatinine 1.02 Estimated GFR > 60 BUN/Creatinine Ratio 18.6 Glucose 119 H Calcium 8.4 Total Bilirubin 0.6 AST 25 ALT 26 Alkaline Phosphatase 71 Total Protein 6.7 Albumin 3.5 Globulin 3.2 Albumin/Globulin Ratio 1.1 [facility] Social History household members: spouse Smoking Status: Never smoker Assessment & Plan Assessment and plan (1) Perforation of sigmoid colon due to diverticulitis: Status: Acute Plan Postoperative ileus which is not unexpected given the acute nature of the perforation Sips of clears until colostomy output Time-Based Coding :: [TOTAL MINUTES] spent with patient and on the chart (including review of chart, obtaining history, exam, reviewing outside data, placing orders, documenting exam and treatment plan, and counseling patient) on [DATE]. PROFEE Patient Portal Concierge Document charge(s): No
--- NOTE | 2024-08-06 14:32 | CM.SWNOTE ---
Addendum entered by AMERICA Salcedo 08/06/24 15:01: DCP updated: sandal parts assembler following and will ensure pt will have ostomy follow up in . sandal parts assembler, Nicole (ph# [phone] or at wound care clinic [phone]). Plans to do a teaching with family on 08/07 and will provide enough supplies until follow up appt with sandal parts assembler at home. Plan: Anticipating dc home on 08/11 or when medically cleared. CM team following. GEOVANI Domínguez Original Note: DCP Continued: Reviewed EMR and team rounds for pt?s medical status. Per MD, possible aspiration pneumonia and ileus. Surgery consulted. Per RN, pt care plan for full liquids and continued ambulation. DCP sent pt signed Request for Information to pt insurance [employer] [place] per pt request, returned original forms to pt red chart. Fax# . Plan: Anticipating dc home with family on 08/08 or when medically cleared. CM Team will continue to follow for coordination of discharge plans. GEOVANI Domínguez
[2024-08-06] MEDS: PANTOPRAZOLE 40 MG VIAL IV (15:11)
[2024-08-06] MEDS: ACETAMINOPHEN IV 1,000 MG/100 ML VIAL 400 MG IV (16:59)
--- NOTE | 2024-08-06 17:44 | PM.PN.1 ---
Subjective Subjective Date Patient Seen: 08/06/24 Interval history: Subjective Subjective Date Patient Seen: 08/05/24 Interval history: Chief complaint: Abdominal pain fever chills rigors and hypoxia secondary to perforated diverticulitis with sepsis History of present illness: 64 yo who developed sudden onset of LLQ pain that started on Monday, 08/02 but got much worse yesterday 08/03 and came to the ER around 10 am for evaluation. He has a hx of inguinal hernia repair. He stated that the pain is in the groin and LLQ of the abd to the ER staff. The pt is currently on Xarelto for his a-fib, He was seen in the ER on 08/03 early in the day and was sent home on Augmentin. Once home he feels his symptoms worsened, he started having severe nausea with several episodes of emesis with worsening pain so he came back to the ER last night for repeat evaluation. Hospital course: 08/04: Patient deteriorated throughout the day has some popping sensation and severe pain in his abdomen followed by hypoxia rigors and tachycardia case was discussed with Dr. Vazquez and after reviewing with family and posterior elected to go to surgery. Patient underwent laparotomy with colectomy and colostomy by Dr. Vazquez: A midline incision was created from just above the umbilicus to the pubis. The abdomen was entered and feculent peritonitis was encountered. The pool sucker was used to drain the murky fluid. The Bookwalter retractor was placed. The cecum and small bowel were quite dilated. The small bowel was packed into the upper abdomen. The perforation was noted along the anti mesenteric aspect of the colon near the junction between the descending colon and sigmoid colon. The sigmoid colon was medialized by dividing the lateral attachments along the white line of Toldt. The mesentery was reflected medially. The planes were well preserved consistent with the rather acute presentation. Once the sigmoid was medialized we divided the distal sigmoid colon with a single firing of the linear cutting stapler with a blue load. We took down the mesentery with the LigaSure back to the proximal sigmoid colon at the level of the perforation. We then divided the colon just above the perforation. The specimen was approximately 12 cm long. We then continued to mobilize the descending colon medially to gain mobility for the colostomy. Finally we removed all of the laps from the abdomen and irrigated the abdomen with at least 3 L of warm saline until all the irrigant returned clear. We then created a colostomy in the left lower quadrant by dividing the abdominal wall through the left rectus muscle. The stapled end of the colon was brought out through the colostomy wound. 08/05: Postoperative day 1 patient is doing much better comfortable on nasal cannula oxygen small amount of gas coming from the ostomy 08/06: Labored breathing and a lot of abdominal distention very small amount of gas coming out of the ostomy. X-ray shows dilated loops of small bowel and proximal colon and left middle lobe infiltrate suggesting aspiration Review of systems: No chest pains No paresthesia paresis No urinary symptoms Physical exam: Patient flushed diaphoretic in obvious distress Heart rate and rhythm irregular Lungs clear to auscultation but with diminished breath sounds No bowel sounds Extremities no edema Objective data: See bottom of the note Assessment and plan: Sepsis secondary to perforated diverticulitis of the descending colon as evidence by hypoxia tachycardia and rigors improved after laparotomy, colectomy and colostomy 08/04. Intravenous antibiotics fluid support Supplemental oxygen respiratory support for hypoxia Status Surgery for resection and colostomy with with good source control 08/06 Reversal of anticoagulation of Xarelto with Kcentra resume his Xarelto when no further surgery anticipated Postoperative management in ICU de-escalated to floor status Chronic atrial fibrillation Anticoagulation reversed Cardiac monitoring DVT prophylaxis with SCDs Full code jimmy I spent 35 minutes in evaluation and management of this patient Exam Vital Signs (past 8 hours): - 08/06/24 13:10 08/06/24 13:32 Temperature 98.2 F Pulse Rate 98 H Respiratory Rate 21 Blood Pressure 105/69 Pulse Oximetry 94 Oxygen Flow Rate 2 Oxygen Delivery Method Nasal Cannula,CPAP Oxygen Flow Rate 2 Objective Labs 08/06/24 11:20 08/06/24 11:20 Labs: Laboratory Results - last 24 hr 08/06/24 11:20 WBC 14.6 H RBC 4.16 L Hgb 12.1 L Hct 35.5 L MCV 85.5 MCH 29.0 MCHC 34.0 RDW 14.0 Plt Count 260 Neut % (Auto) 88.5 H Lymph % (Auto) 6.2 L [place] % (Auto) 4.9 Eos % (Auto) 0.2 L Baso % (Auto) 0.2 Neut # (Auto) 08724 H Lymph # (Auto) 900 L [place] # (Auto) 700 Eos # (Auto) 0 Baso # (Auto) 0 Sodium 138 Potassium 4.1 Chloride 102 Carbon Dioxide 27 BUN 19 Creatinine 1.02 Estimated GFR > 60 BUN/Creatinine Ratio 18.6 Glucose 119 H Calcium 8.4 Total Bilirubin 0.6 AST 25 ALT 26 Alkaline Phosphatase 71 Total Protein 6.7 Albumin 3.5 Globulin 3.2 Albumin/Globulin Ratio 1.1 PFSH Social History household members: spouse Smoking Status: Never smoker Assessment & Plan Time-Based Coding :: [TOTAL MINUTES] spent with patient and on the chart (including review of chart, obtaining history, exam, reviewing outside data, placing orders, documenting exam and treatment plan, and counseling patient) on [DATE].
[2024-08-06] MEDS: MELATONIN 3 MG TABLET PO (20:39)
[2024-08-06] MEDS: SENNOSIDES 8.6 MG TABLET 17.2 MG PO (20:39)
[2024-08-07] VITALS: BP 117/76; PULSE 86; RESP 19; TEMP 36.7; O2SAT 92
[2024-08-07] MEDS: KETOROLAC 30 MG/ML VIAL IV ×3 (00:31→15:20)
[2024-08-07] MEDS: HYDROMORPHONE 0.5 MG INJ IV ×3 (03:44→21:34)
[2024-08-07] MEDS: PIPERACILLIN/TAZO 3.375 GM in SODIUM CHLORIDE 0.9% 100 ML IV ×3 (03:45→20:07)
[2024-08-07 04:00] VITALS: BP 124/79; PULSE 77; RESP 16; TEMP 36.7; O2SAT 91
[2024-08-07 08:00] VITALS: BP 129/78; PULSE 90; RESP 18; O2SAT 96
[2024-08-07] MEDS: ENOXAPARIN 40 MG/0.4 ML SYRINGE SUBCUT (08:59)
[2024-08-07] MEDS: METOPROLOL IR 25 MG TABLET 12.5 MG PO ×2 (09:00→20:08)
--- NOTE | 2024-08-07 09:06 | P.PN_ITS ---
Subjective Subjective Interval history: Chief complaint: Abdominal pain fever chills rigors and hypoxia secondary to perforated diverticulitis with sepsis History of present illness: 64 yo who developed sudden onset of LLQ pain that started on Monday, 08/02 but got much worse yesterday 08/03 and came to the ER around 10 am for evaluation. He has a hx of inguinal hernia repair. He stated that the pain is in the groin and LLQ of the abd to the ER staff. The pt is currently on Xarelto for his a-fib, He was seen in the ER on 08/03 early in the day and was sent home on Augmentin. Once home he feels his symptoms worsened, he started having severe nausea with several episodes of emesis with worsening pain so he came back to the ER last night for repeat evaluation. Hospital course: 08/04: Patient deteriorated throughout the day has some popping sensation and severe pain in his abdomen followed by hypoxia rigors and tachycardia case was discussed with Dr. Vazquez and after reviewing with family and posterior elected to go to surgery. Patient underwent laparotomy with colectomy and colostomy by Dr. Vazquez: A midline incision was created from just above the umbilicus to the pubis. The abdomen was entered and feculent peritonitis was encountered. The pool sucker was used to drain the murky fluid. The Bookwalter retractor was placed. The cecum and small bowel were quite dilated. The small bowel was packed into the upper abdomen. The perforation was noted along the anti mesenteric aspect of the colon near the junction between the descending colon and sigmoid colon. The sigmoid colon was medialized by dividing the lateral attachments along the white line of Toldt. The mesentery was reflected medially. The planes were well preserved consistent with the rather acute presentation. Once the sigmoid was medialized we divided the distal sigmoid colon with a single firing of the linear cutting stapler with a blue load. We took down the mesentery with the LigaSure back to the proximal sigmoid colon at the level of the perforation. We then divided the colon just above the perforation. The specimen was approximately 12 cm long. We then continued to mobilize the descending colon medially to gain mobility for the colostomy. Finally we removed all of the laps from the abdomen and irrigated the abdomen with at least 3 L of warm saline until all the irrigant returned clear. We then created a colostomy in the left lower quadrant by dividing the abdominal wall through the left rectus muscle. The stapled end of the colon was brought out through the colostomy wound. 08/05: Postoperative day 1 patient is doing much better comfortable on nasal cannula oxygen small amount of gas coming from the ostomy 08/06: Labored breathing and a lot of abdominal distention very small amount of gas coming out of the ostomy. X-ray shows dilated loops of small bowel and proximal colon and left middle lobe infiltrate suggesting aspiration. 08/07: S: Pain at 3/10, minimal flatus. Minimal gas in ostomy bag. Some belching. Abdomen is distended. He was ambulating. He did sleep last night. No dyspnea. Exam Vital Signs (past 8 hours): - 08/07/24 04:00 08/07/24 08:00 Temperature 98.1 F Pulse Rate 77 90 Respiratory Rate 16 18 Blood Pressure 124/79 129/78 Pulse Oximetry 91 96 Oxygen Flow Rate 0 Oxygen Delivery Method Nasal Cannula,CPAP Oxygen Flow Rate 0 Narrative Exam Narrative: NAD, alert and oriented. Fluent speech. Lungs are clear, normal rate and effort. Heart is regular, no murmur gallop or rub. Abdomen is distended, hypertympanic, hypoactive bowel tones. Ostomy in place. Extremities are free of edema. Objective Labs 08/07/24 12:16 08/07/24 12:16 Labs: Laboratory Results - last 24 hr 08/06/24 11:20 WBC 14.6 H RBC 4.16 L Hgb 12.1 L Hct 35.5 L MCV 85.5 MCH 29.0 MCHC 34.0 RDW 14.0 Plt Count 260 Neut % (Auto) 88.5 H Lymph % (Auto) 6.2 L [place] % (Auto) 4.9 Eos % (Auto) 0.2 L Baso % (Auto) 0.2 Neut # (Auto) 69873 H Lymph # (Auto) 900 L [place] # (Auto) 700 Eos # (Auto) 0 Baso # (Auto) 0 Sodium 138 Potassium 4.1 Chloride 102 Carbon Dioxide 27 BUN 19 Creatinine 1.02 Estimated GFR > 60 BUN/Creatinine Ratio 18.6 Glucose 119 H Calcium 8.4 Total Bilirubin 0.6 AST 25 ALT 26 Alkaline Phosphatase 71 Total Protein 6.7 Albumin 3.5 Globulin 3.2 Albumin/Globulin Ratio 1.1 PFSH Social History household members: spouse Smoking Status: Never smoker Assessment & Plan Assessment & Plan narrative: Sepsis secondary to perforated diverticulitis of the descending colon as evidence by hypoxia tachycardia and rigors improved after laparotomy, colectomy and colostomy 08/04. * Intravenous antibiotics fluid support * Supplemental oxygen respiratory support for hypoxia * Status Surgery for resection and colostomy with with good source control 08/06 * Reversal of anticoagulation of Xarelto with Kcentra * resume his Xarelto when no further surgery anticipated * Postoperative management in ICU de-escalated to floor status Chronic atrial fibrillation * Anticoagulation reversed * Cardiac monitoring PLAN: -continue ambulation and monitor progress of ileus. -discuss with surgery regarding reinstitution of anticoagulation. -continue IV fluids and antibiotics. DVT prophylaxis, anticoagulation as above. Time-Based Coding :: [TOTAL MINUTES] spent with patient and on the chart (including review of chart, obtaining history, exam, reviewing outside data, placing orders, documenting exam and treatment plan, and counseling patient) on [DATE].
[2024-08-07] MEDS: HYDROCODONE/ACET 5/325 TABLET 1 TAB PO ×3 (09:44→20:08)
[2024-08-07] MEDS: SODIUM CHLORIDE 0.9% FLUSH 10 ML IV ×2 (09:46→21:29)
[2024-08-07] MEDS: PANTOPRAZOLE 40 MG VIAL IV (09:46)
[2024-08-07 12:00] VITALS: BP 128/69; PULSE 82; RESP 18; O2SAT 91
[2024-08-07] MEDS: SODIUM CHLORIDE 0.45% 1,000 ML 75 ML IV (12:11)
[2024-08-07 12:26] LABS: Add Manual Diff / Slide Review NO; Basophils Absolute Auto 0 /uL (0-100); Basophils Percent Auto 0.1 % (0-2); Eosinophils Absolute Auto 100 /uL (0-450); Hematocrit 35.1 % (41-53); Hemoglobin 11.9 g/dL (13.5-17.5); Lymphocytes Absolute Auto 1100 /uL (1100-4500); Lymphocytes Percent Auto 9.6 % (25-40); Mean Corpuscular Hemoglobin 28.8 PG (26-34); Mean Corpuscular Volume 84.9 fL (80-100); Monocytes Absolute Auto 500 /uL (0-900); Monocytes Percent Auto 4.6 % (3-14); Neutrophils Absolute Auto 10000 /uL (1500-7000); Neutrophils Percent Auto 84.7 % (50-75); Platelet Count 285 X10^3/uL (150-400); Red Blood Cell Count 4.14 X10^6/uL (4.5-5.9); Red Cell Distribution Width 14.4 % (11.6-14.8); White Blood Cell Count 11.8 X10^3/uL (4.5-11.0)
[2024-08-07 12:41] LABS: Alanine Aminotransferase 24 IU/L (<50); Albumin 3.3 g/dL (3.5-5.0); Albumin Globulin Ratio 1.2 (1.0-2.8); Alkaline Phosphatase 83 U/L (38-126); Aspartate Aminotransferase 25 IU/L (17-59); BUN Creatinine Ratio 19.4 (6-22); Bilirubin Total 0.7 mg/dL (0.2-1.3); Blood Urea Nitrogen 19 mg/dL (9-20); Calcium 8.4 mg/dL (8.4-10.2); Carbon Dioxide 28 mmol/L (22-32); Chloride 105 mmol/L (98-107); Estimated Glomerular Filt Rate > 60 mL/min (>60); Globulin 2.8 g/dL (1.7-4.1); Glucose 126 mg/dL (70-99); HEMOLYSIS < 15 (0-50); Potassium 4.1 mmol/L (3.4-5.1); Sodium 137 mmol/L (137-145); Total Protein 6.1 g/dL (6.3-8.2)
--- NOTE | 2024-08-07 13:12 | PM.PN.IH.1 ---
Subjective Subjective Date Patient Seen: 08/07/24 Time Patient Seen: 13:12 Interval history: Feeling better today. Still feels quite bloated and distended. He did pass a little bit of flatus per anus. Exam Vital Signs (past 8 hours): - 08/07/24 08:00 08/07/24 12:00 Pulse Rate 90 82 Respiratory Rate 18 18 Blood Pressure 129/78 128/69 Pulse Oximetry 96 91 Oxygen Delivery Method Nasal Cannula,CPAP Oxygen Flow Rate 0 Narrative Exam Narrative: Abdomen remains rather distended There is some liquid stool in the colostomy bag Objective Labs 08/07/24 12:16 08/07/24 12:16 Labs: Laboratory Results - last 24 hr 08/07/24 12:16 WBC 11.8 H RBC 4.14 L Hgb 11.9 L Hct 35.1 L MCV 84.9 MCH 28.8 MCHC 34.0 RDW 14.4 Plt Count 285 Neut % (Auto) 84.7 H Lymph % (Auto) 9.6 L [place] % (Auto) 4.6 Eos % (Auto) 1.0 L Baso % (Auto) 0.1 Neut # (Auto) 16169 H Lymph # (Auto) 1100 [place] # (Auto) 500 Eos # (Auto) 100 Baso # (Auto) 0 Sodium 137 Potassium 4.1 Chloride 105 Carbon Dioxide 28 BUN 19 Creatinine 0.98 Estimated GFR > 60 BUN/Creatinine Ratio 19.4 Glucose 126 H Calcium 8.4 Total Bilirubin 0.7 AST 25 ALT 24 Alkaline Phosphatase 83 Total Protein 6.1 L Albumin 3.3 L Globulin 2.8 Albumin/Globulin Ratio 1.2 PFSH Social History household members: spouse Smoking Status: Never smoker Assessment & Plan Assessment and plan (1) Perforation of sigmoid colon due to diverticulitis: Status: Acute Plan Advance diet once passing more flatus in his colostomy Time-Based Coding :: [TOTAL MINUTES] spent with patient and on the chart (including review of chart, obtaining history, exam, reviewing outside data, placing orders, documenting exam and treatment plan, and counseling patient) on [DATE]. PROFEE Sustainability Executive Director Document charge(s): No
[2024-08-07 16:00] VITALS: BP 135/80; PULSE 101; RESP 15; O2SAT 92
[2024-08-07 20:00] VITALS: BP 124/79; PULSE 59; RESP 18; TEMP 36.3; O2SAT 91
[2024-08-07] MEDS: MELATONIN 3 MG TABLET PO (20:08)
[2024-08-07] MEDS: SENNOSIDES 8.6 MG TABLET 17.2 MG PO (20:08)
[2024-08-08] VITALS (10 sets, daily range): BP systolic 123–135; BP diastolic 74–81; PULSE 87–113; RESP 16–20; TEMP 36.1–37; O2SAT 94–96
[2024-08-08] MEDS: HYDROMORPHONE 0.5 MG INJ IV ×4 (00:28→21:38)
[2024-08-08] MEDS: SODIUM CHLORIDE 0.45% 1,000 ML 75 ML IV (00:35)
[2024-08-08] MEDS: HYDROCODONE/ACET 5/325 TABLET 1 TAB PO ×3 (00:36→16:17)
[2024-08-08] MEDS: PIPERACILLIN/TAZO 3.375 GM in SODIUM CHLORIDE 0.9% 100 ML IV ×3 (03:23→20:41)
[2024-08-08 04:57] LABS: Add Manual Diff / Slide Review NO; Basophils Absolute Auto 100 /uL (0-100); Basophils Percent Auto 0.6 % (0-2); Eosinophils Absolute Auto 100 /uL (0-450); Eosinophils Percent Auto 1.2 % (2-4); Hematocrit 34.8 % (41-53); Hemoglobin 11.8 g/dL (13.5-17.5); Lymphocytes Absolute Auto 1100 /uL (1100-4500); Lymphocytes Percent Auto 8.8 % (25-40); Mean Corpuscular Hemoglobin 28.9 PG (26-34); Mean Corpuscular Volume 85.1 fL (80-100); Monocytes Absolute Auto 800 /uL (0-900); Monocytes Percent Auto 6.4 % (3-14); Neutrophils Absolute Auto 10100 /uL (1500-7000); Platelet Count 306 X10^3/uL (150-400); Red Blood Cell Count 4.09 X10^6/uL (4.5-5.9); Red Cell Distribution Width 14.3 % (11.6-14.8); White Blood Cell Count 12.2 X10^3/uL (4.5-11.0)
[2024-08-08] MEDS: PANTOPRAZOLE 40 MG VIAL IV (08:29)
[2024-08-08] MEDS: SODIUM CHLORIDE 0.9% FLUSH 10 ML IV ×2 (08:30→21:49)
[2024-08-08] MEDS: ENOXAPARIN 40 MG/0.4 ML SYRINGE SUBCUT (08:30)
[2024-08-08] MEDS: METOPROLOL IR 25 MG TABLET 12.5 MG PO ×2 (08:30→21:45)
[2024-08-08 11:35] LABS: Add Manual Diff / Slide Review NO; Basophils Absolute Auto 0 /uL (0-100); Basophils Percent Auto 0.3 % (0-2); Eosinophils Absolute Auto 100 /uL (0-450); Eosinophils Percent Auto 0.6 % (2-4); Hematocrit 37.3 % (41-53); Hemoglobin 12.6 g/dL (13.5-17.5); Lymphocytes Absolute Auto 1100 /uL (1100-4500); Lymphocytes Percent Auto 7.8 % (25-40); Mean Corpuscular HGB Conc 33.8 % (30-36); Mean Corpuscular Hemoglobin 28.7 PG (26-34); Mean Corpuscular Volume 84.9 fL (80-100); Monocytes Absolute Auto 900 /uL (0-900); Monocytes Percent Auto 6.3 % (3-14); Neutrophils Absolute Auto 11600 /uL (1500-7000); Platelet Count 351 X10^3/uL (150-400); Red Blood Cell Count 4.39 X10^6/uL (4.5-5.9); Red Cell Distribution Width 14.1 % (11.6-14.8); White Blood Cell Count 13.6 X10^3/uL (4.5-11.0)
[2024-08-08 11:44] LABS: Alanine Aminotransferase 27 IU/L (<50); Albumin 3.4 g/dL (3.5-5.0); Albumin Globulin Ratio 1.1 (1.0-2.8); Alkaline Phosphatase 91 U/L (38-126); Aspartate Aminotransferase 29 IU/L (17-59); BUN Creatinine Ratio 17.1 (6-22); Bilirubin Total 0.8 mg/dL (0.2-1.3); Blood Urea Nitrogen 14 mg/dL (9-20); Calcium 8.7 mg/dL (8.4-10.2); Carbon Dioxide 26 mmol/L (22-32); Chloride 102 mmol/L (98-107); Estimated Glomerular Filt Rate > 60 mL/min (>60); Globulin 3.1 g/dL (1.7-4.1); Glucose 141 mg/dL (70-99); HEMOLYSIS < 15 (0-50); Sodium 136 mmol/L (137-145); Total Protein 6.5 g/dL (6.3-8.2)
--- NOTE | 2024-08-08 14:27 | CM.DPC ---
DCP Cont: Per MD and Surgeon, pt with minimal flatus and does not appear to have much bowel tones and will not advance diet until further flatus or function returns. Pt was still somewhat distended yesterday. Per oil burner technician and HALEIGH, call from pt's DOC Sana Kaci [phone] with with one of pt's insurance companies in [place] requesting clinicals to be faxed towards attempts at transferring pt to one of their [facility]. [facility] faxed requested clinicals. JESSICA and respiratory manager Nicole ([phone]) met bedside with pt and spouse and they are aware that pt's two insurance companies are working to get pt transferred into their network in [place] either by [employer] vs ambulance and they are agreeable with transfer if it can be arranged. Spouse and pt have participated in teaching with respiratory manager Sheila and she will change pt's ostomy device today bedside in case pt transferred today or tomrorow before Nicole is available in the afternoon. SW observed pt actively ambulating and doing his recommended exercises bedside. Pt steady and independent. MD updated. Plan: SW to follow closely for possible hospital transfer up to [place] vs remain here until stable for discharge home with ongoing ostomy supplies and outpt f/u. AMERICA Metz
--- NOTE | 2024-08-08 14:48 | P.PN_ITS ---
Subjective Subjective Date Patient Seen: 08/08/24 Time Patient Seen: 14:48 Interval history: Alex has had some more liquid stool and flatus through the colostomy however he still feels rather distended with minimal appetite He has worked with Nicole our stoma therapist Exam Vital Signs (past 8 hours): - 08/08/24 07:00 08/08/24 08:00 08/08/24 10:21 Temperature 97.9 F Pulse Rate 105 H Respiratory Rate 19 Blood Pressure 132/81 Pulse Oximetry 96 94 Oxygen Delivery Method Nasal Cannula CPAP Room Air Oxygen Delivery Method Room Air Oxygen Flow Rate 3 Narrative Exam Narrative: Abdomen distended Incision is clean dry and intact Colostomy is red and perfused with some liquid stool output Objective Labs 08/08/24 11:22 08/08/24 09:15 Labs: Laboratory Results - last 24 hr 08/08/24 08/08/24 08/08/24 04:36 09:15 11:22 WBC 12.2 H 13.6 H RBC 4.09 L 4.39 L Hgb 11.8 L 12.6 L Hct 34.8 L 37.3 L MCV 85.1 84.9 MCH 28.9 28.7 MCHC 34.0 33.8 RDW 14.3 14.1 Plt Count 306 351 Neut % (Auto) 83.0 H 85.0 H Lymph % (Auto) 8.8 L 7.8 L [place] % (Auto) 6.4 6.3 Eos % (Auto) 1.2 L 0.6 L Baso % (Auto) 0.6 0.3 Neut # (Auto) 68103 H 24090 H Lymph # (Auto) 1100 1100 [place] # (Auto) 800 900 Eos # (Auto) 100 100 Baso # (Auto) 100 0 Sodium 136 L Potassium 4.0 Chloride 102 Carbon Dioxide 26 BUN 14 Creatinine 0.82 Estimated GFR > 60 BUN/Creatinine Ratio 17.1 Glucose 141 H Calcium 8.7 Total Bilirubin 0.8 AST 29 ALT 27 Alkaline Phosphatase 91 Total Protein 6.5 Albumin 3.4 L Globulin 3.1 Albumin/Globulin Ratio 1.1 PFSH Social History household members: spouse Smoking Status: Never smoker Assessment & Plan Assessment and plan (1) Perforation of sigmoid colon due to diverticulitis: Status: Acute Plan Recommend waiting for his abdominal distention to decrease somewhat before we advance his diet to regular We can restart his rivaroxaban If his white count is normal tomorrow and he remains afebrile we can stop antibiotics tomorrow Time-Based Coding :: [TOTAL MINUTES] spent with patient and on the chart (including review of chart, obtaining history, exam, reviewing outside data, placing orders, documenting exam and treatment plan, and counseling patient) on [DATE]. PROFEE Hedge Fund Trader Document charge(s): No
--- NOTE | 2024-08-08 18:57 | P.PN_ITS ---
Subjective Subjective Interval history: 64 M visiting from [facility] admitted with perforated diverticulitis, now s/p colostomy and sigmoidectomy. Slight improvement in diet today, not taking much liquid intake and abdomen still feels a bit bloated. Has some stomach rumbling, no noted gas from ostomy today, no bowel function of yet. His pain is much better however, and has used much less pain medication per nursing staff. Exam Vital Signs (past 8 hours): - 08/08/24 12:00 Temperature 97.8 F Pulse Rate 113 H Respiratory Rate 20 Oxygen Delivery Method Room Air Oxygen Flow Rate 3 Narrative Exam Narrative: NAD, alert and oriented. Fluent speech. Lungs are clear, normal rate and effort. Heart is regular, no murmur gallop or rub. Abdomen is distended, appropriately tender, Ostomy in place. Incision appears c/d/i. Extremities are free of edema. Objective Labs 08/08/24 11:22 08/08/24 09:15 Labs: Laboratory Results - last 24 hr 08/08/24 08/08/24 08/08/24 04:36 09:15 11:22 WBC 12.2 H 13.6 H RBC 4.09 L 4.39 L Hgb 11.8 L 12.6 L Hct 34.8 L 37.3 L MCV 85.1 84.9 MCH 28.9 28.7 MCHC 34.0 33.8 RDW 14.3 14.1 Plt Count 306 351 Neut % (Auto) 83.0 H 85.0 H Lymph % (Auto) 8.8 L 7.8 L [place] % (Auto) 6.4 6.3 Eos % (Auto) 1.2 L 0.6 L Baso % (Auto) 0.6 0.3 Neut # (Auto) 79180 H 61335 H Lymph # (Auto) 1100 1100 [place] # (Auto) 800 900 Eos # (Auto) 100 100 Baso # (Auto) 100 0 Sodium 136 L Potassium 4.0 Chloride 102 Carbon Dioxide 26 BUN 14 Creatinine 0.82 Estimated GFR > 60 BUN/Creatinine Ratio 17.1 Glucose 141 H Calcium 8.7 Total Bilirubin 0.8 AST 29 ALT 27 Alkaline Phosphatase 91 Total Protein 6.5 Albumin 3.4 L Globulin 3.1 Albumin/Globulin Ratio 1.1 PFSH Social History household members: spouse Smoking Status: Never smoker Assessment & Plan Assessment & Plan narrative: Sepsis secondary to perforated diverticulitis of the descending colon as evidence by hypoxia tachycardia and rigors improved after laparotomy, colectomy and colostomy 08/04. * Continue IV fluids today, d5 1/2 NS until increased PO intake and bowel function. * Supplemental oxygen respiratory support for hypoxia, goal O2 90-96% while on therapy wean as tolerated. * Status Surgery for resection and colostomy with with good source control 08/06 * Reversal of anticoagulation of Xarelto with Kcentra prior to OR, now ordered to resume after discussion with surgery today. * Postoperative management in ICU de-escalated to floor status Chronic atrial fibrillation with RVR * Anticoagulation reversed * Cardiac monitoring to continue * continue home metoprolol 12.5 mg BID, consider increase in dose as HR is slightly trending up over the last few days. HTN - holding home HCTZ and ramipril for now. He is normotensive today. PLAN: -continue ambulation and monitor progress of ileus. -continue IV fluids and antibiotics for now with slight wbc rise. DVT prophylaxis, anticoagulation as above. Dispo: likely home once return of bowel function, possible 1-3 days. Time-Based Coding :: [TOTAL MINUTES] spent with patient and on the chart (including review of chart, obtaining history, exam, reviewing outside data, placing orders, documenting exam and treatment plan, and counseling patient) on [DATE].
[2024-08-08] MEDS: MELATONIN 3 MG TABLET PO (21:45)
[2024-08-08] MEDS: SENNOSIDES 8.6 MG TABLET 17.2 MG PO (21:45)
[2024-08-09] VITALS (13 sets, daily range): BP systolic 127–176; BP diastolic 66–107; PULSE 94–118; RESP 17–22; TEMP 36.2–36.4; O2SAT 95–99
[2024-08-09] MEDS: HYDROMORPHONE 0.5 MG INJ IV (00:16)
[2024-08-09] MEDS: PIPERACILLIN/TAZO 3.375 GM in SODIUM CHLORIDE 0.9% 100 ML IV ×2 (03:24→16:16)
[2024-08-09] MEDS: SODIUM CHLORIDE 0.45% 1,000 ML 75 ML IV ×2 (03:25→16:17)
[2024-08-09 06:04] LABS: Add Manual Diff / Slide Review NO; Basophils Absolute Auto 0 /uL (0-100); Basophils Percent Auto 0.2 % (0-2); Eosinophils Absolute Auto 200 /uL (0-450); Eosinophils Percent Auto 1.3 % (2-4); Hematocrit 35.7 % (41-53); Hemoglobin 12.1 g/dL (13.5-17.5); Lymphocytes Absolute Auto 1200 /uL (1100-4500); Mean Corpuscular HGB Conc 33.9 % (30-36); Mean Corpuscular Hemoglobin 28.6 PG (26-34); Mean Corpuscular Volume 84.5 fL (80-100); Monocytes Absolute Auto 1100 /uL (0-900); Monocytes Percent Auto 7.6 % (3-14); Neutrophils Absolute Auto 11300 /uL (1500-7000); Neutrophils Percent Auto 81.9 % (50-75); Platelet Count 379 X10^3/uL (150-400); Red Blood Cell Count 4.22 X10^6/uL (4.5-5.9); Red Cell Distribution Width 13.7 % (11.6-14.8); White Blood Cell Count 13.8 X10^3/uL (4.5-11.0)
[2024-08-09 06:10] LABS: BUN Creatinine Ratio 15.3 (6-22); Blood Urea Nitrogen 11 mg/dL (9-20); Calcium 8.4 mg/dL (8.4-10.2); Carbon Dioxide 26 mmol/L (22-32); Chloride 104 mmol/L (98-107); Estimated Glomerular Filt Rate > 60 mL/min (>60); Glucose 117 mg/dL (70-99); HEMOLYSIS < 15 (0-50); Potassium 3.3 mmol/L (3.4-5.1); Sodium 137 mmol/L (137-145)
[2024-08-09] MEDS: RIVAROXABAN 10 MG TABLET 20 MG PO (08:22)
[2024-08-09] MEDS: METOPROLOL IR 25 MG TABLET 12.5 MG PO ×2 (08:22→11:21)
[2024-08-09] MEDS: SODIUM CHLORIDE 0.9% FLUSH 10 ML IV ×2 (08:22→20:14)
[2024-08-09] MEDS: PANTOPRAZOLE 40 MG VIAL IV (08:22)
--- NOTE | 2024-08-09 09:45 | DIET.CONS ---
Dietary Consultation Note Admission Date: 08/04/2024 05:48 Assessment: 64y M s/p sigmoidectomy with new colostomy on day 5 clear liquid diet. Pt well nourished prior to bowel perforation, concern for inadequate protein and calories to support post-surgical healing. Kitchen sending ONS Ensure Clear tid for more meaningful intake. Per report pt with some stomach rumbling but little flatus in ostomy bag. Ht: 172.72 cm Wt: 94 kg BMI: 28.1 Last BM: 08/09/24 (08/09/24 07:00) MNA: 14 Zander Score: 21 Diet: 08/05/24 Breakfast Clear Liquid Diet Diet Modifications: Labs: RBC 4.22 X10^6/uL (4.5-5.9) L 08/09/24 05:00 Hgb 12.1 g/dL (13.5-17.5) L 08/09/24 05:00 Hct 35.7 % (41-53) L 08/09/24 05:00 Creatinine 0.72 mg/dL (0.66-1.25) 08/09/24 05:00 Lactate 2.0 mmol/L (0.7-2.1) 08/04/24 17:20 Nutrition Diagnosis: Inadequate intake protein r/t postoperative ileus aeb pt s/p sigmoidectomy with new colostomy, day 5 on clear liquid diet, minimal bowel tones/flatus, no BM. Interventions: 1. ONS Ensure Clear tid Monitoring/Evaluations: Following for return of bowel function Electronically Signed by: Marry Lindsey 08/09/24 09:45 Clinical Dietitian [address] [address]
[2024-08-09] MEDS: diazePAM 2 MG TABLET PO ×3 (09:58→20:07)
[2024-08-09] MEDS: POTASSIUM CHLORIDE 20 MEQ TAB 40 MEQ PO ×2 (09:58→16:16)
--- NOTE | 2024-08-09 12:10 | P.PN_ITS ---
Subjective Subjective Interval history: 64 M visiting from [facility] admitted with perforated diverticulitis, now s/p colostomy and sigmoidectomy. Has some ostomy output today, feeling quite anxious today. Abdomen still feeling bloated. Tolerating a bit more clears but has little appetite for advanced diet this morning. Exam Vital Signs (past 8 hours): - 08/09/24 08:00 08/09/24 08:00 Temperature 97.4 F L Pulse Rate 107 H Respiratory Rate 18 Blood Pressure 139/82 Pulse Oximetry 97 Oxygen Delivery Method Room Air Oxygen Flow Rate 0 Oxygen Delivery Method Room Air Oxygen Flow Rate 0 Narrative Exam Narrative: NAD, alert and oriented. Fluent speech. Lungs are clear, normal rate and effort. Heart is regular, no murmur gallop or rub. Abdomen is distended, appropriately tender, Ostomy in place with liquid stool in the bag. Incision appears c/d/i. Extremities are free of edema. Objective Labs 08/09/24 05:00 08/09/24 05:00 Labs: Laboratory Results - last 24 hr 08/09/24 05:00 WBC 13.8 H RBC 4.22 L Hgb 12.1 L Hct 35.7 L MCV 84.5 MCH 28.6 MCHC 33.9 RDW 13.7 Plt Count 379 Neut % (Auto) 81.9 H Lymph % (Auto) 9.0 L [place] % (Auto) 7.6 Eos % (Auto) 1.3 L Baso % (Auto) 0.2 Neut # (Auto) 06817 H Lymph # (Auto) 1200 [place] # (Auto) 1100 H Eos # (Auto) 200 Baso # (Auto) 0 Sodium 137 Potassium 3.3 L Chloride 104 Carbon Dioxide 26 BUN 11 Creatinine 0.72 Estimated GFR > 60 BUN/Creatinine Ratio 15.3 Glucose 117 H Calcium 8.4 Magnesium 2.0 PFSH Social History household members: spouse Smoking Status: Never smoker Assessment & Plan Assessment & Plan narrative: Sepsis secondary to perforated diverticulitis of the descending colon as evidence by hypoxia tachycardia and rigors improved after laparotomy, colectomy and colostomy 08/04. * Continue IV fluids today, d5 1/2 NS until increased PO intake. * Supplemental oxygen respiratory support for hypoxia, goal O2 90-96% while on therapy wean as tolerated. Now off supplemental O2 today 08/09. * Status Surgery for resection and colostomy with with good source control 08/06 * Reversal of anticoagulation of Xarelto with Kcentra prior to OR, now ordered to resume after discussion with surgery on 08/08. * Postoperative management in ICU de-escalated to floor status * remains on zosyn, WBC slowly improving. Chronic atrial fibrillation with RVR * Anticoagulation reversed initially, now resumed rivaroxaban on 08/08. * Cardiac monitoring to continue with RVR * Increased home metoprolol to 25 mg BID today for HR 110s-120s. Likely related to abdominal distension but continue to monitor. HTN - holding home HCTZ and ramipril for now. He is normotensive today but BP is starting to creep up. Have upped beta nicki today will continue to monitor before restarting other agents at this time. DVT prophylaxis, anticoagulation as above. Dispo: likely home once diet advanced further, possible 1-2 more days. Time-Based Coding :: [TOTAL MINUTES] spent with patient and on the chart (including review of chart, obtaining history, exam, reviewing outside data, placing orders, documenting exam and treatment plan, and counseling patient) on [DATE].
--- NOTE | 2024-08-09 12:54 | CM.DPNOTE ---
DCP Continued: Reviewed EMR and team rounds for pt?s medical status. Per hospitalist, pt has had some ostomy output this morning but still bloated. Anticipating discharge home to on 08/10. DCP attempted to reach tire duster, Nicole, via cell phone but not able to connect, left a voice message. Wanted to inquire about her coordination/referral for pt to be seen outpatient in [facility]. FORTUNATO received a call from Lele Track Production Engineer at [facility] who was been attempting to coordinate a hospital transfer for patient. It is reported that she has been given direction to coordinate a transport and the process is as follows: 1. RN to Track Production Engineer report 2. Faxed DC Summary or medical documentation from MD that patient is stable for transfer 3. MD to MD consultation to be coordinated by [facility] Track Production Engineer 4. Patient Transfer Network at hospital will coordinate transport DCP discussed above with hospitalist who amended most recent Progress Note that pt is stable for transportation. DCP faxed this to [facility] Track Production Engineer, Lele (fax#[phone]). Plan: Pending hospital transfer to [facility]. CM Team will continue to follow for coordination of discharge plans. GEOVANI Domínguez
[2024-08-09] MEDS: ACETAMINOPHEN 325 MG TABLET 650 MG PO (12:57)
--- NOTE | 2024-08-09 15:31 | PM.PN.IH.1 ---
Subjective Subjective Date Patient Seen: 08/09/24 Interval history: Patient indicates that he feels better today. He continues to have stool and gas from his ostomy. He is somewhat less bloated today than he was yesterday and lax and appetite. Exam Vital Signs (past 8 hours): - 08/09/24 07:59 08/09/24 07:59 08/09/24 08:00 Temperature 97.4 F L Pulse Rate 107 H Respiratory Rate 18 Blood Pressure 139/82 139/82 Pulse Oximetry 97 97 Oxygen Delivery Method Oxygen Flow Rate 0 08/09/24 08:00 08/09/24 12:00 08/09/24 13:14 Temperature 97.5 F L Pulse Rate 118 H Respiratory Rate 22 Blood Pressure 176/107 H Pulse Oximetry 95 Oxygen Delivery Method Room Air Oxygen Flow Rate 0 08/09/24 14:05 Temperature Pulse Rate 109 H Respiratory Rate Blood Pressure 130/76 Pulse Oximetry Oxygen Delivery Method Oxygen Flow Rate Oxygen Delivery Method Room Air Oxygen Flow Rate 0 Narrative Exam Narrative: Lungs are clear to auscultation. Heart has a regular rate and rhythm with no murmur or gallop. Abdomen is soft, mildly distended with normal bowel sounds. Ostomy is pink and viable and productive of liquid stool and gas. His wound is clean and dry. Objective Labs 08/09/24 05:00 08/09/24 05:00 Labs: Laboratory Results - last 24 hr 08/09/24 05:00 WBC 13.8 H RBC 4.22 L Hgb 12.1 L Hct 35.7 L MCV 84.5 MCH 28.6 MCHC 33.9 RDW 13.7 Plt Count 379 Neut % (Auto) 81.9 H Lymph % (Auto) 9.0 L [place] % (Auto) 7.6 Eos % (Auto) 1.3 L Baso % (Auto) 0.2 Neut # (Auto) 17334 H Lymph # (Auto) 1200 [place] # (Auto) 1100 H Eos # (Auto) 200 Baso # (Auto) 0 Sodium 137 Potassium 3.3 L Chloride 104 Carbon Dioxide 26 BUN 11 Creatinine 0.72 Estimated GFR > 60 BUN/Creatinine Ratio 15.3 Glucose 117 H Calcium 8.4 Magnesium 2.0 PFSH Social History household members: spouse Smoking Status: Never smoker Assessment & Plan Assessment and plan (1) Perforation of sigmoid colon due to diverticulitis: Status: Acute Plan Postop day 5 from Fred procedure. There is no indication of infection. His white count is mildly elevated but stable and he is afebrile. His exam is innocuous. I believe at wisest to hold him it clears today. We will consider efforts to advance his diet tomorrow. Time-Based Coding :: [TOTAL MINUTES] spent with patient and on the chart (including review of chart, obtaining history, exam, reviewing outside data, placing orders, documenting exam and treatment plan, and counseling patient) on [DATE]. PROFEE Cartridge Assembling Machine Adjuster Document charge(s): No
[2024-08-09] MEDS: TRAZODONE 50 MG TABLET PO (20:07)
[2024-08-09] MEDS: SENNOSIDES 8.6 MG TABLET 17.2 MG PO (20:07)
[2024-08-09] MEDS: MELATONIN 3 MG TABLET PO (20:08)
[2024-08-09] MEDS: METOPROLOL IR 25 MG TABLET PO (20:14)
[2024-08-10] VITALS: BP 136/84; PULSE 88; RESP 18; O2SAT 95
[2024-08-10] MEDS: HYDROMORPHONE 0.5 MG INJ IV ×2 (00:24→04:26)
[2024-08-10] MEDS: diazePAM 2 MG TABLET PO ×2 (00:24→04:28)
[2024-08-10] MEDS: PIPERACILLIN/TAZO 3.375 GM in SODIUM CHLORIDE 0.9% 100 ML IV ×3 (00:29→16:28)
[2024-08-10 04:00] VITALS: BP 135/84; PULSE 87; RESP 18; O2SAT 98
[2024-08-10 05:10] LABS: Add Manual Diff / Slide Review NO; Basophils Absolute Auto 100 /uL (0-100); Basophils Percent Auto 0.5 % (0-2); Eosinophils Absolute Auto 200 /uL (0-450); Eosinophils Percent Auto 1.5 % (2-4); Hematocrit 37.2 % (41-53); Hemoglobin 12.7 g/dL (13.5-17.5); Lymphocytes Absolute Auto 1900 /uL (1100-4500); Lymphocytes Percent Auto 13.8 % (25-40); Mean Corpuscular Hemoglobin 28.7 PG (26-34); Mean Corpuscular Volume 84.5 fL (80-100); Monocytes Absolute Auto 1000 /uL (0-900); Monocytes Percent Auto 7.2 % (3-14); Neutrophils Absolute Auto 10600 /uL (1500-7000); Platelet Count 374 X10^3/uL (150-400); Red Blood Cell Count 4.41 X10^6/uL (4.5-5.9); Red Cell Distribution Width 14.3 % (11.6-14.8); White Blood Cell Count 13.8 X10^3/uL (4.5-11.0)
[2024-08-10 05:28] LABS: BUN Creatinine Ratio 12.5 (6-22); Blood Urea Nitrogen 9 mg/dL (9-20); Calcium 8.6 mg/dL (8.4-10.2); Carbon Dioxide 24 mmol/L (22-32); Chloride 107 mmol/L (98-107); Estimated Glomerular Filt Rate > 60 mL/min (>60); Glucose 123 mg/dL (70-99); HEMOLYSIS 24 (0-50); Potassium 3.8 mmol/L (3.4-5.1); Sodium 137 mmol/L (137-145)
--- NOTE | 2024-08-10 07:54 | P.PN_ITS ---
Subjective Subjective Date Patient Seen: 08/10/24 Interval history: Feels better today. Colostomy output continues to be gas and liquid. He has an appetite today. Exam Vital Signs (past 8 hours): - 08/10/24 00:00 08/10/24 04:00 Pulse Rate 88 87 Respiratory Rate 18 18 Blood Pressure 136/84 135/84 Pulse Oximetry 95 98 Oxygen Delivery Method Room Air Oxygen Flow Rate 0 Narrative Exam Narrative: Lungs are clear to auscultation. Heart has a regular rate and rhythm with no murmur or gallop. Abdomen is less distended. Bowel sounds are present. Ostomy is pink and viable. It is productive of liquid stool and gas. Wound is clean and dry. Objective Labs 08/10/24 04:39 08/10/24 04:39 Labs: Laboratory Results - last 24 hr 08/10/24 04:39 WBC 13.8 H RBC 4.41 L Hgb 12.7 L Hct 37.2 L MCV 84.5 MCH 28.7 MCHC 34.0 RDW 14.3 Plt Count 374 Neut % (Auto) 77.0 H Lymph % (Auto) 13.8 L [place] % (Auto) 7.2 Eos % (Auto) 1.5 L Baso % (Auto) 0.5 Neut # (Auto) 50643 H Lymph # (Auto) 1900 [place] # (Auto) 1000 H Eos # (Auto) 200 Baso # (Auto) 100 Sodium 137 Potassium 3.8 Chloride 107 Carbon Dioxide 24 BUN 9 Creatinine 0.72 Estimated GFR > 60 BUN/Creatinine Ratio 12.5 Glucose 123 H Calcium 8.6 Magnesium 2.0 PFSH Social History household members: spouse Smoking Status: Never smoker Assessment & Plan Assessment and plan (1) Perforation of sigmoid colon due to diverticulitis: Status: Acute Plan Advance to full liquid diet. I cautioned the patient to discontinue oral intake if he feels full. Encourage ambulation. Time-Based Coding :: [TOTAL MINUTES] spent with patient and on the chart (including review of chart, obtaining history, exam, reviewing outside data, placing orders, documenting exam and treatment plan, and counseling patient) on [DATE]. PROFEE Manager Operations And Procurement Document charge(s): No
[2024-08-10 08:00] VITALS: BP 139/81; PULSE 95; RESP 19; TEMP 36.4; O2SAT 96
[2024-08-10] MEDS: ACETAMINOPHEN 325 MG TABLET 650 MG PO (08:54)
[2024-08-10] MEDS: METOPROLOL IR 25 MG TABLET PO ×2 (08:54→20:58)
[2024-08-10] MEDS: PANTOPRAZOLE 40 MG VIAL IV (08:54)
[2024-08-10] MEDS: RIVAROXABAN 10 MG TABLET 20 MG PO (08:54)
[2024-08-10 12:00] VITALS: BP 130/76; PULSE 76; RESP 19; TEMP 36.1; O2SAT 96
--- NOTE | 2024-08-10 12:14 | P.PN_ITS ---
Subjective Subjective Interval history: 64 yo male w/HTN, HLD, a fib on Xarelto anticoagulation who is presently hospital day 6, admitted w/septic shock secondary to perforated diverticulitis and feculent peritonitis. He is now POD #6 from sigmoid colectomy and end colostomy. Diet was advanced to clear liquids yesterday and he did have some stool output. Today, diet is being advanced to full liquids. He notes he is having some discomfort in the abdomen but believes it is related to gas movement. He notes he has had a prior colonoscopy but believed it only showed polyps. Exam Vital Signs (past 8 hours): - 08/10/24 08:00 Temperature 97.5 F L Pulse Rate 95 H Respiratory Rate 19 Blood Pressure 139/81 Pulse Oximetry 96 Oxygen Delivery Method Room Air Oxygen Flow Rate 0 Narrative Exam Narrative: GEN: Very pleasant middle-aged male, Alert and oriented x 3, NAD HEENT:NC, Face symmetric CHEST: Respiratory excursions symmetric, CTAB CV: RRR, no M/R/G ABD: Soft, moderately distended, bowel sounds present in all 4 quadrants, ostomy draining dark brown liquid EXTR: warm, well perfused, no C/C, 1+ pitting edema bilaterally SKIN: warm and dry, no rash NEURO: Alert and oriented x 3, nonfocal Objective Labs 08/10/24 04:39 08/10/24 04:39 Labs: Laboratory Results - last 24 hr 08/10/24 04:39 WBC 13.8 H RBC 4.41 L Hgb 12.7 L Hct 37.2 L MCV 84.5 MCH 28.7 MCHC 34.0 RDW 14.3 Plt Count 374 Neut % (Auto) 77.0 H Lymph % (Auto) 13.[address] [place] % (Auto) 7.2 Eos % (Auto) 1.5 L Baso % (Auto) 0.5 Neut # (Auto) 40373 H Lymph # (Auto) 1900 [place] # (Auto) 1000 H Eos # (Auto) 200 Baso # (Auto) 100 Sodium 137 Potassium 3.8 Chloride 107 Carbon Dioxide 24 BUN 9 Creatinine 0.72 Estimated GFR > 60 BUN/Creatinine Ratio 12.5 Glucose 123 H Calcium 8.6 Magnesium 2.0 PFSH Social History household members: spouse Smoking Status: Never smoker Assessment & Plan Assessment & Plan narrative: 1. Perforated sigmoid diverticulitis Patient is postoperative day 6 from sigmoid colectomy and end-colostomy placement. He remains on Zosyn therapy. Today is day 7. Tolerated clear liquids yesterday. Having output from his colostomy. Full liquid diet initiated today. He is tolerating it thus far. White blood cell count stable at 13.8. He is afebrile. 2. Hypertension He is normotensive. On metoprolol 25 mg twice daily. 3. AFib on chronic anticoagulation Currently doing well on Xarelto 4. Anemia Mild, normocytic. His hemoglobin was normal on admission. This is likely secondary to acute blood losses related to his perforation and expected blood loss with surgery. 5. Hypokalemia Mild on labs yesterday. Resolved now. 6. Sepsis Secondary to perforated diverticulitis. Now resolved. 7. Disposition Anticipate [facility] once accepted and coordinated Time-Based Coding :: [TOTAL MINUTES] spent with patient and on the chart (including review of chart, obtaining history, exam, reviewing outside data, placing orders, documenting exam and treatment plan, and counseling patient) on [DATE].
--- NOTE | 2024-08-10 13:17 | P.DS_ITS ---
History of Present Illness History of Present Illness Chief complaint: Feeling worse since last here 08/03 nausea/vomiting Narrative: Per H&P: The pt is a 64 yo who developed sudden onset of LLQ pain that started on Monday, 08/02 but got much worse yesterday 08/03 and came to the ER around 10 am for evaluation. He has a hx of inguinal hernia repair. He stated that the pain is in the groin and LLQ of the abd to the ER staff. The pt is currently on DOAC for his a-fib, He was seen in the ER on 08/03 early in the day and was sent home on Augmentin. Once home he feels his symptoms worsened, he started having severe nausea with several episodes of emesis with worsening pain so he came back to the ER last night for repeat evaluation. He is having nausea, chills, no BM, severe pain, worse with movement. Discharge Providers Provider Date of admission: 08/04/24 05:48 Discharge Date: 08/10/24 Consults: 08/05/24 08:59 Consult to Dietitian, Adult Routine Comment: colostomy Reason For Exam: new colostomy Consult to Wound Care Routine Comment: Consulting Provider: [facility] Discharge provider: Lisseth Diaz MD Summary Hospital Course Discharge Diagnosis: 1. Perforated sigmoid diverticulitis 2. Hypertension 3. AFib on chronic anticoagulation 4. Anemia 5. Hypokalemia 6. Sepsis Hospital Course: Patient came down to spend a weekend visiting the area. Notes that he was in his usual state of health without any change in bowel habits prior to acute onset of symptoms. On the date of admission, he had progressively worsening abdominal pain. He had hoped to be able to return home but on the afternoon of August 04 felt a popping sensation in his abdomen followed by severe pain, hypoxia, rigors, and tachycardia. He ultimately developed perforated sigmoid diverticulitis and feculent peritonitis. Was taken to the operating room for sigmoid colectomy and end-colostomy. He was admitted to the intensive care unit postoperatively. He was placed on IV antibiotics. His postoperative course was uncomplicated. He had slow return of bowel function. He was able to tolerate clear liquids on August 09 and had return of bowel function was soft stools passing in his ostomy bag. On August 10, his diet was advanced to full liquids which he tolerated well. His travel insurance coordinated between our hospital and [facility] in [facility]. They were able to accept him in transfer on the date of discharge. He is discharged via nonemergent ambulance on the date of discharge in stable condition. Please note, the transfer hospital erroneously says [facility] due to limitations in our electronic medical record. There is not an option to choose ?other? for a transferring hospital. Status at Discharge Cognitive/behavioral status at discharge: at baseline, oriented Functional status at discharge: independent ambulation Overall status at discharge: patient is progressing back to baseline Exam Vital Signs (past 8 hours): - 08/10/24 08:00 08/10/24 12:00 Temperature 97.5 F L 97.0 F L Pulse Rate 95 H 76 Respiratory Rate 19 19 Blood Pressure 139/81 130/76 Pulse Oximetry 96 96 Oxygen Flow Rate 0 Oxygen Delivery Method Room Air Oxygen Flow Rate 0 Narrative Exam Narrative: See today's progress note for discharge exam Objective Labs 08/10/24 04:39 08/10/24 04:39 Labs: Laboratory Results - last 24 hr 08/10/24 04:39 WBC 13.8 H RBC 4.41 L Hgb 12.7 L Hct 37.2 L MCV 84.5 MCH 28.7 MCHC 34.0 RDW 14.3 Plt Count 374 Neut % (Auto) 77.0 H Lymph % (Auto) 13.8 L [place] % (Auto) 7.2 Eos % (Auto) 1.5 L Baso % (Auto) 0.5 Neut # (Auto) 24497 H Lymph # (Auto) 1900 [place] # (Auto) 1000 H Eos # (Auto) 200 Baso # (Auto) 100 Sodium 137 Potassium 3.8 Chloride 107 Carbon Dioxide 24 BUN 9 Creatinine 0.72 Estimated GFR > 60 BUN/Creatinine Ratio 12.5 Glucose 123 H Calcium 8.6 Magnesium 2.0 PFSH Social History household members: spouse Smoking Status: Never smoker Discharge Plan Discharge Plan Patient Disposition: [facility] Other facility: [facility], [place] Under care of provider: Dr. Lopes, Hospitalist Discharge Health Status Multidrug resistant organism: No MDRO Precautions: [place] Diet/Activity/Treatments Diet: Full Liquid Liquid consistency: Normal/Thin Activity: Up to chair TID, advance as tolerated Oxygen: N/A Other treatments: Routine ostomy care Visit Report/Discharge Packet Instructions: DI for Colectomy, [facility]: Wound Care Stand Alone Forms: Surgery Discharge
--- NOTE | 2024-08-10 15:06 | CM.DPC ---
DCP Cont: Per Surgeon, pt with small output through his ostomy and less distended and to advance to full liquids and pt with some appetite but to discontinue if he feels full. Per MD, contacted by pt's Emergency Travel insurance and gathered pt information and coordinated with [facility] for plan of hospital transfer but then called back stating they would not cover the cost of transportation. MD awaiting more information to see if pt to remain for ongoing tx vs hospital transfer coverage. Pt with spouse and friends bedside and preference would be to remain at [facility] for tx as he states I've been getting great care here. AMERICA Metz
[2024-08-10 16:00] VITALS: BP 130/73; PULSE 87; RESP 17; TEMP 36.6; O2SAT 95
--- NOTE | 2024-08-10 18:47 | PC.NURSE ---
Pt will leave via EMS to [facility] tomorrow 08/11 @11AM
[2024-08-10 20:00] VITALS: BP 132/78; PULSE 84; RESP 18; O2SAT 96
[2024-08-10] MEDS: SENNOSIDES 8.6 MG TABLET 17.2 MG PO (20:58)
[2024-08-10] MEDS: SODIUM CHLORIDE 0.9% FLUSH 10 ML IV (20:58)
[2024-08-10] MEDS: MELATONIN 3 MG TABLET PO (20:58)
[2024-08-11] VITALS: BP 137/78; PULSE 74; RESP 18; O2SAT 94
[2024-08-11] MEDS: PIPERACILLIN/TAZO 3.375 GM in SODIUM CHLORIDE 0.9% 100 ML IV ×2 (00:21→08:43)
[2024-08-11] MEDS: HYDROMORPHONE 0.5 MG INJ IV (00:21)
[2024-08-11] MEDS: TRAZODONE 50 MG TABLET PO (00:22)
[2024-08-11] MEDS: diazePAM 2 MG TABLET PO (00:22)
[2024-08-11 04:00] VITALS: BP 131/79; PULSE 71; RESP 18; O2SAT 96
[2024-08-11 04:58] LABS: Add Manual Diff / Slide Review NO; Basophils Absolute Auto 100 /uL (0-100); Basophils Percent Auto 0.8 % (0-2); Eosinophils Absolute Auto 300 /uL (0-450); Eosinophils Percent Auto 2.4 % (2-4); Hematocrit 34.9 % (41-53); Hemoglobin 11.8 g/dL (13.5-17.5); Lymphocytes Absolute Auto 2000 /uL (1100-4500); Lymphocytes Percent Auto 15.8 % (25-40); Mean Corpuscular HGB Conc 33.8 % (30-36); Mean Corpuscular Hemoglobin 28.4 PG (26-34); Monocytes Absolute Auto 1100 /uL (0-900); Monocytes Percent Auto 8.4 % (3-14); Neutrophils Absolute Auto 9100 /uL (1500-7000); Neutrophils Percent Auto 72.6 % (50-75); Platelet Count 406 X10^3/uL (150-400); Red Blood Cell Count 4.16 X10^6/uL (4.5-5.9); Red Cell Distribution Width 13.9 % (11.6-14.8); White Blood Cell Count 12.6 X10^3/uL (4.5-11.0)
[2024-08-11 05:00] LABS: BUN Creatinine Ratio 13.8 (6-22); Blood Urea Nitrogen 11 mg/dL (9-20); Calcium 8.6 mg/dL (8.4-10.2); Carbon Dioxide 27 mmol/L (22-32); Chloride 106 mmol/L (98-107); Estimated Glomerular Filt Rate > 60 mL/min (>60); Glucose 115 mg/dL (70-99); HEMOLYSIS < 15 (0-50); Potassium 3.8 mmol/L (3.4-5.1); Sodium 136 mmol/L (137-145)
[2024-08-11 08:00] VITALS: BP 144/74; PULSE 72; RESP 16; TEMP 36.9; O2SAT 96
[2024-08-11] MEDS: RIVAROXABAN 10 MG TABLET 20 MG PO (08:43)
[2024-08-11] MEDS: PANTOPRAZOLE 40 MG VIAL IV (08:43)
[2024-08-11] MEDS: SODIUM CHLORIDE 0.9% FLUSH 10 ML IV (08:44)
[2024-08-11] MEDS: METOPROLOL IR 25 MG TABLET PO (08:44)
--- NOTE | 2024-08-11 08:55 | PM.PN.IH.1 ---
Subjective Subjective Date Patient Seen: 08/11/24 Interval history: Patient feels well today. Passing stall solid stool from his ostomy. Tolerated full liquids without difficulty. Reportedly is planned for transfer to [facility] facility later this morning Exam Vital Signs (past 8 hours): - 08/11/24 04:00 Pulse Rate 71 Respiratory Rate 18 Blood Pressure 131/79 Pulse Oximetry 96 Oxygen Delivery Method Room Air Oxygen Flow Rate 0 Narrative Exam Narrative: Lungs are clear to auscultation. Heart has a regular rate and rhythm with no murmur or gallop. Abdomen is soft and nontender with normal bowel sounds. Ostomy is pink, functioning and viable. Objective Labs 08/11/24 04:30 08/11/24 04:30 Labs: Laboratory Results - last 24 hr 08/11/24 04:30 WBC 12.6 H RBC 4.16 L Hgb 11.8 L Hct 34.9 L MCV 84.0 MCH 28.4 MCHC 33.8 RDW 13.9 Plt Count 406 H Neut % (Auto) 72.6 Lymph % (Auto) 15.8 L [place] % (Auto) 8.4 Eos % (Auto) 2.4 Baso % (Auto) 0.8 Neut # (Auto) 9100 H Lymph # (Auto) 2000 [place] # (Auto) 1100 H Eos # (Auto) 300 Baso # (Auto) 100 Sodium 136 L Potassium 3.8 Chloride 106 Carbon Dioxide 27 BUN 11 Creatinine 0.80 Estimated GFR > 60 BUN/Creatinine Ratio 13.8 Glucose 115 H Calcium 8.6 Magnesium 2.0 PFSH Social History household members: spouse Smoking Status: Never smoker Assessment & Plan Assessment and plan (1) Perforation of sigmoid colon due to diverticulitis: Status: Acute Plan Advance diet. Proceed with transfer as planned. Time-Based Coding :: [TOTAL MINUTES] spent with patient and on the chart (including review of chart, obtaining history, exam, reviewing outside data, placing orders, documenting exam and treatment plan, and counseling patient) on [DATE]. PROFEE Registered Nurse Practitioner Document charge(s): No
--- NOTE | 2024-08-11 09:22 | PM.PN.1 ---
Subjective Subjective Interval history: 64 yo male w/HTN, HLD, a fib on Xarelto anticoagulation who is presently hospital day 6, admitted w/septic shock secondary to perforated diverticulitis and feculent peritonitis. He is now POD #7 from sigmoid colectomy and end colostomy. Diet was advanced to full liquids yesterday. He reports he got up and walked nearly hourly yesterday. He is feeling better overall. He tolerated a full liquid diet. He was supposed to discharge and transferred to a local hospital in [facility]. However, by the time things were coordinated, it was late afternoon and the ambulance company does not transport patient is at night. Reportedly, he is supposed to discharge this morning around 11:00 a.m.. He does complain of heel pain bilaterally in the morning. It gradually improves after getting out of bed. Exam Vital Signs (past 8 hours): - 08/11/24 04:00 Pulse Rate 71 Respiratory Rate 18 Blood Pressure 131/79 Pulse Oximetry 96 Oxygen Delivery Method Room Air Oxygen Flow Rate 0 Narrative Exam Narrative: GEN: Very pleasant middle-aged male, Alert and oriented x 3, NAD HEENT:NC, Face symmetric CHEST: Respiratory excursions symmetric, CTAB CV: RRR, no M/R/G ABD: Soft, moderately distended, bowel sounds present in all 4 quadrants, ostomy draining medium brown stool EXTR: warm, well perfused, no C/C, 1+ pitting edema bilaterally SKIN: warm and dry, no rash NEURO: Alert and oriented x 3, nonfocal Objective Labs 08/11/24 04:30 08/11/24 04:30 Labs: Laboratory Results - last 24 hr 08/11/24 04:30 WBC 12.6 H RBC 4.16 L Hgb 11.8 L Hct 34.9 L MCV 84.0 MCH 28.4 MCHC 33.8 RDW 13.9 Plt Count 406 H Neut % (Auto) 72.6 Lymph % (Auto) 15.8 L [place] % (Auto) 8.4 Eos % (Auto) 2.4 Baso % (Auto) 0.8 Neut # (Auto) 9100 H Lymph # (Auto) 2000 [place] # (Auto) 1100 H Eos # (Auto) 300 Baso # (Auto) 100 Sodium 136 L Potassium 3.8 Chloride 106 Carbon Dioxide 27 BUN 11 Creatinine 0.80 Estimated GFR > 60 BUN/Creatinine Ratio 13.8 Glucose 115 H Calcium 8.6 Magnesium 2.0 [facility] Social History household members: spouse Smoking Status: Never smoker Assessment & Plan Assessment & Plan narrative: 1. Perforated sigmoid diverticulitis Patient is postoperative day 7 from sigmoid colectomy and end-colostomy placement. He remains on Zosyn therapy. Today is day 8/10 of antibiotics. Tolerated full liquids yesterday. Having output from his colostomy. Advanced to regular diet today. White blood cell count continuing to improve. He is afebrile. 2. Hypertension He is normotensive. On metoprolol 25 mg twice daily. 3. AFib on chronic anticoagulation Currently doing well on Xarelto. Rate controlled. 4. Anemia Mild, normocytic. His hemoglobin was normal on admission. This is likely secondary to acute blood losses related to his perforation and expected blood loss with surgery. 5. Hypokalemia Mild on labs yesterday. Resolved now. 6. Sepsis Secondary to perforated diverticulitis. Now resolved. 7. Disposition Anticipate transferring to [facility] today. Time-Based Coding :: [TOTAL MINUTES] spent with patient and on the chart (including review of chart, obtaining history, exam, reviewing outside data, placing orders, documenting exam and treatment plan, and counseling patient) on [DATE].
[2024-08-11] MEDS: ONDANSETRON 4 MG/2 ML INJ IV (09:34)
[2024-08-11] MEDS: HYDROCODONE/ACET 5/325 TABLET 1 TAB PO (09:34)
--- NOTE | 2024-08-11 10:05 | PC.NURSE ---
Transfer: [facility] transfer EMS team arrived to room 226 at approximately 0910. Pt agreeable to discharge. EMS stated they could not take pt with infusing antibiotic. Provider notified and infusion stopped. Pt ambulated to [facility], emptied colostomy. Pt [facility] retrieved from [facility] and nurse field observer drawer. Telemetry removed, PIV continued for resumption of care at receiving facility. Pt transferred via stretcher to EMS vehicle. Report provided to EMS, contact information provided with intention of having receiving RN call from transfer facility for report from this RN. EMS departed at approximately 09:49 with destination [facility] ED.
--- NOTE | 2024-08-11 10:29 | CM.DPNOTE ---
DCP Note [facility] [employer] reviewed EMR. per RN note, plan to dc to [facility] ED at 11am today in [place] via EMS. per studio operations engineer in charge, EMS arrived at around 0900 to transport pt. P: transfer to [facility], at 0945 via ambulance. no further CM needs at this time, will continue to follow as needed AMERICA Catherine
--- NOTE | 2024-08-11 21:50 | P.DS_ITS ---
History of Present Illness History of Present Illness Chief complaint: Feeling worse since last here 08/03 nausea/vomiting Narrative: From H&P: 64 yo male w/HTN, HLD, a fib on Xarelto anticoagulation who is presently hospital day 6, admitted w/septic shock secondary to perforated diverticulitis and feculent peritonitis. He is now POD #7 from sigmoid colectomy and end colostomy. Diet was advanced to full liquids yesterday. He reports he got up and walked nearly hourly yesterday. He is feeling better overall. He tolerated a full liquid diet. He was supposed to discharge and transferred to a local hospital in [facility]. However, by the time things were coordinated, it was late afternoon and the ambulance company does not transport patient is at night. Reportedly, he is supposed to discharge this morning around 11:00 a.m.. He does complain of heel pain bilaterally in the morning. It gradually improves after getting out of bed. Discharge Providers Provider Date of admission: 08/04/24 05:48 Discharge Date: 08/11/24 Consults: 08/05/24 08:59 Consult to Dietitian, Adult Routine Comment: colostomy Reason For Exam: new colostomy Consult to Wound Care Routine Comment: Consulting Provider: [facility] Discharge provider: Sukh Michele MD Summary Hospital Course Discharge Diagnosis: 1. Perforated sigmoid diverticulitis Patient is postoperative day 7 from sigmoid colectomy and end-colostomy placement. He remains on Zosyn therapy. Today is day 8/10 of antibiotics. Tolerated full liquids yesterday. Having output from his colostomy. Advanced to regular diet today. White blood cell count continuing to improve. He is afebrile. 2. Hypertension He is normotensive. On metoprolol 25 mg twice daily. 3. AFib on chronic anticoagulation Currently doing well on Xarelto. Rate controlled. 4. Anemia Mild, normocytic. His hemoglobin was normal on admission. This is likely secondary to acute blood losses related to his perforation and expected blood loss with surgery. 5. Hypokalemia Mild on labs yesterday. Resolved now. 6. Sepsis Secondary to perforated diverticulitis. Now resolved. 7. Disposition Anticipate transferring to [facility] today. Hospital Course: Patient came down to spend a weekend visiting the area. Notes that he was in his usual state of health without any change in bowel habits prior to acute onset of symptoms. On the date of admission, he had progressively worsening abdominal pain. He had hoped to be able to return home but on the afternoon of August 04 felt a popping sensation in his abdomen followed by severe pain, hypoxia, rigors, and tachycardia. He ultimately developed perforated sigmoid diverticulitis and feculent peritonitis. Was taken to the operating room for sigmoid colectomy and end-colostomy. He was admitted to the intensive care unit postoperatively. He was placed on IV antibiotics. His postoperative course was uncomplicated. He had slow return of bowel function. He was able to tolerate clear liquids on August 09 and had return of bowel function was soft stools passing in his ostomy bag. On August 10, his diet was advanced to full liquids which he tolerated well. His travel insurance coordinated between our hospital and [facility] in [facility]. They were able to accept him in transfer on the date of discharge. He is discharged via nonemergent ambulance on the date of discharge in stable condition. Status at Discharge Cognitive/behavioral status at discharge: oriented Functional status at discharge: independent ambulation Overall status at discharge: patient is progressing back to baseline Time Spent with Patient Time spent: Greater than 30 minutes Exam Vital Signs (past 8 hours): Oxygen Delivery Method Room Air Oxygen Flow Rate 0 Narrative Exam Narrative: Seen by Dr Diaz on this DOS. Objective Labs 08/11/24 04:30 08/11/24 04:30 [facility] Social History household members: spouse Smoking Status: Never smoker Discharge Assessment & Plan Assessment and Plan Assessment: 1. Diverticulitis. Discharge Plan Discharge Plan Patient Disposition: [facility] Other facility: [facility] Under care of provider: Dr. Lopes, Hospitalist Provider Discharge Comment: Patient being transferred to [facility] via nonemergent ambulance, per request of his travel insurance company. He will likely be ready for discharge home tomorrow, 08/12/24 after receiving ostomy care education. He will need supplies. Diet can be advanced to regular diet today. Today is day 8/10 of antibiotics. Discharge Health Status Multidrug resistant organism: No MDRO Precautions: [place] Diet/Activity/Treatments Diet: Full Liquid Liquid consistency: Normal/Thin Activity: Up to chair TID, advance as tolerated Oxygen: N/A Other treatments: Routine ostomy care Visit Report/Discharge Packet Instructions: DI for Colectomy, [facility]: Wound Care Stand Alone Forms: Surgery Discharge
== END 2024-08-11 09:48 | disposition short-term general hospital (02) | DRG 329 ==
LOC: ED 05:48 → AC 07:13 → ICU 19:18 → AC 08-05 06:18 → ICU 08-05 06:18
PROVIDERS: Internal Medicine; Surgery; Admitting Provider Internal Medicine; Emergency Provider Family Medicine; Referring Provider Family Medicine; Visit Provider Internal Medicine
PROC: 0DTN0ZZ Resection of Sigmoid Colon, Open Approach (ICD-10-PCS; CPT 44140; principal; 2024-08-04 18:00)
DX: K57.20 Diverticulitis of large intestine with perforation and abscess without bleeding (principal); A41.9 Sepsis, unspecified organism; K65.8 Other peritonitis; R65.21 Severe sepsis with septic shock; I48.20 Chronic atrial fibrillation, unspecified; I10 Essential (primary) hypertension; E87.6 Hypokalemia; R09.02 Hypoxemia; Z79.01 Long term (current) use of anticoagulants
CPT/HCPCS: 36415; 71045; 74018; 74177; 80048; 80053; 83605; 83735; 84145; 85025; 85610; 85730; 87040; 96361; 96365; 96367; 96375; 99284; J0131; J0666; J0744; J1100; J1171; J1650; J1885; J2175; J2270; J2405; J2470; J2543; J2704; J3010; J3360; J3475; J7050; J7168; Q9967